=== PATIENT | male | born 1945 | race African-American/Black ===

== ENCOUNTER 2016-12-31 19:02 | Inpatient (IN) | payer MEDICARE, BC ==
--- NOTE | ~2016-12-31 | HP ---
History And Physical [facility] [address] [place]. [address] NAME: MARCIA RAY : 43 STATUS : ADM IN [facility]#: [id number] AGE: 71 ADM/REG DATE : 12/31/16 MR#: [id number] REPORT SERV DATE: 01/01/17 DICTATED BY: DAVID VILLATORO DATE: 01/01/17 REPORT STATUS : Draft TRANSCRIBED BY: MODL DATE: 01/01/17 DATE OF ADMISSION: 12/31/2016 CHIEF COMPLAINT: Shortness of breath. Transfer from [facility]. REASON FOR TRANSFER: The patient was discussed from attending at [facility] with Pulmonary lead simulation modeling engineer for increasing pulmonary pressures and severe pulmonary hypertension. Requested transfer to [facility] under Hospitalist Service for workup for pulmonary hypertension. HISTORY OF PRESENT ILLNESS: The patient is a 71-year-old male with past medical history of COPD; diabetes; hypothyroidism; peptic ulcer disease; irritable bowel syndrome; diastolic heart failure; hypertension; RAMÓN, on trilogy at home; severe pulmonary hypertension with reported recent pulmonary pressures in the 80s, but up to 135 at [facility]; PEA history in 2014; CKD stage 3; hypotestosteronism; and adrenal insufficiency, who presents after having shortness of breath approximately a week ago. Was admitted at [facility]. The patient was treated for COPD exacerbation and diastolic heart failure. Has been on diuresis along with O2, DuoNebs, and steroid taper. The patient with workup did have echocardiogram that showed preserved ejection fraction 55% to 60%, severe RV enlargement, moderate eccentric TR, and severe estimated pulmonary artery systolic pressures of 135 to 140. These results were apparently discussed with on-call for pulmonary, who recommended transfer to [facility] for additional pulmonary workup. The patient has been under the care of Dr. Cher Car and Dr. Pollack. When discussing with the patient, the patient reports that his shortness of breath has slightly been getting better. He does wear his trilogy BiPAP machine at home, but was requiring increased use of this before his admission to [facility]. The patient reports that he has been in progressive shortness of breath and reports that he knows these are the end consequences of this disease, but was trying to get slightly feeling better, which were his goals and going to the hospital. The patient reports that he has no pain at this point. Has been urinating quite a bit including filling up multiple urinals, is actually feeling slightly dehydrated. He does not have any chest pain, shortness of breath, new rashes, bruising, nausea, or vomiting. Does have mild constipation at times. The shortness of breath is significantly improved, but he still requires BiPAP at night. No fevers or chills. REVIEW OF SYSTEMS: A 10-point review of system is negative except that noted in HPI. PAST MEDICAL HISTORY: As noted above. SURGICAL HISTORY: Cholecystectomy and bilateral rotator cuff repairs. ALLERGIES: OXYCODONE, LUIS INHIBITOR, PENICILLIN, ARBS, MORPHINE. CODE STATUS: DNI and the patient also reflects that he is DNR. Discussion with compressions, electrical manipulation including shocks, mechanical History And Physical [address] [address] NAME: MARCIA RAY : 43 STATUS : ADM IN [facility]#: [id number] AGE: 71 ADM/REG DATE : 12/31/16 MR#: [id number] REPORT SERV DATE: 01/01/17 DICTATED BY: DAVID VILLATORO DATE: 01/01/17 REPORT STATUS : Draft TRANSCRIBED BY: CHERIE DATE: 01/01/17 intubation, or ACLS protocol. The patient declines this. Is still okay with BiPAP, CPAP, and also declines having a feeding tube for nutrition if unable to tolerate. This has been reflected on his POLST form during this hospitalization. SOCIAL HISTORY: Quit smoking over 30 years ago. Occasional alcohol. Retired from [employer]. Does have supportive family with sister. Does have one son, who lives alone. FAMILY HISTORY: Heart disease. HOME MEDICATIONS: Albuterol, aspirin, atorvastatin, Symbicort, Bumex, Coreg, vitamin D, Cartia, Trusopt, Cortef, NovoLog insulin, Imdur, Xalatan, Synthroid, was still on Prinivil, meclizine, Nitrostat, Spiriva, Maxzide. PHYSICAL EXAMINATION: VITAL SIGNS: Blood pressure 195/90, O2 saturations 98% on 4 L, temperature 97.3, pulse 83, respirations 16, weight 96.16. GENERAL: Obese, in no acute distress, sitting on side of bed slightly upset secondary to pulmonary team not being at bedside on arrival, as this was what he was told was the reason for transfer. EYES: No scleral icterus. EOMI. ENT: Nares patent. Tongue midline. RESPIRATORY: Good air flow upper lung air cummins. Mildly decreased lower lung air cummins. Increased AP diameter in chest wall, but equal chest expansion. CARDIAC: Mild systolic ejection murmur. No rubs or gallops. Cap refill less than 2 seconds. No JVD. No pedal edema at this time. ABDOMEN: Central obesity. Nontender, nondistended. No CVA tenderness. Bowel sounds positive. MUSCULOSKELETAL: Moves all extremities x4. SKIN: Warm and dry. Actual wrinkling of extremities and mild tenting of hands and feet. NEURO: Alert and oriented. Moves all extremities x4. PSYCH: Appropriate mood, but mildly anxious. LABORATORY DATA: No labs sent from outside facility. Echocardiogram showed moderate eccentric severe pulmonary artery pressures of 135 to 140. Systolic ejection fraction of 55 to 60. Severe RV enlargement and decreased estimated systolic function, flattened septum suggestive of increased RV pressure, volume overload, severe right atrial enlargement, report on chart. ASSESSMENT AND PLAN: 1. Severe pulmonary hypertension with increased pulmonary pressures. Apparently, [facility] attending has discussed with on-call Pulmonary, who recommended transfer to facility for further evaluation and workup. This patient has been treated for approximately a week for acute COPD exacerbation, but still has not returned back to his baseline. We will consult Pulmonary for additional evaluation. 2. Acute chronic obstructive pulmonary disease exacerbation. O2, DuoNebs, and steroid titration. 3. Diabetes type 2. Sliding scale insulin. Increase Levemir while on steroids. History And Physical [address] [place]. [address] NAME: MARCIA RAY : 43 STATUS : ADM IN PAT#: [id number] AGE: 71 ADM/REG DATE : 12/31/16 MR#: [id number] REPORT SERV DATE: 01/01/17 DICTATED BY: DAVID VILLATORO DATE: 01/01/17 REPORT STATUS : Draft TRANSCRIBED BY: MODElieser DATE: 01/01/17 4. Hypertension. P.r.n.'s and home medications with the exception of LUIS inhibitor, which was reported to be contraindicated per our allergy list from 12/17/2014. 5. Hypothyroidism. On replacement. 6. Diastolic heart failure. Appears to be adequately diuresed. This patient does have now tenting of skin, dry skin, and wrinkling of the lower extremities. We will hold continued p.o. Bumex, which was given b.i.d. and reassess in a.m. for further use. DNR, DNI. POLST form completed. The patient has reflected many times of DNI status. I have also discussed additional ACLS including compressions and electrical shocks. The patient declines this and reports that his family knows his wishes. All questions answered with the patient. DISPOSITION: Pending Pulmonary evaluation and results from above. DDN/MODL David Villatoro MD / [id number] CC: Tim Meehan II, MD
--- NOTE | ~2016-12-31 | DS ---
Discharge Summary [place] [id number] [facility] [place]. [address] NAME: MARCIA RAY : 43 STATUS : DIS IN PAT#: [id number] AGE: 72 ADM/REG DATE : 12/31/16 MR#: [id number] REPORT SERV DATE: 01/08/17 DICTATED BY: LIZY JACKSON DATE: 01/08/17 REPORT STATUS : Draft TRANSCRIBED BY: MODL DATE: 01/08/17 ADMISSION DATE: 12/31/2016 DISCHARGE DATE: 01/08/2017 DISCHARGE DIAGNOSES: 1. Acute on chronic hypoxemic and hypercapnic respiratory failure. 2. Severe pulmonary hypertension. 3. Chronic cor pulmonale. 4. Chronic obstructive pulmonary disease with acute exacerbation. 5. Chronic kidney disease 3 exacerbated by additional diuretic therapy. 6. Type 2 diabetes, uncontrolled, with hyperglycemia, and hemoglobin A1c of 9.1. 7. Hypothyroid, on Synthroid replacement, with slightly suppressed TSH at 0.263, outpatient followup needed. 8. Chronic anemia. 9. Glaucoma. 10.Hypogonadism. 11.Chronic diastolic heart failure. OPERATIONS AND PROCEDURES: None. HISTORY OF PRESENT ILLNESS: This is a 72-year-old male, who was transferred from [facility] for further evaluation and treatment of severe pulmonary hypertension as outlined on admission history and physical examination dictated by Dr. Moisés Zapata. ADDITIONAL HISTORY: Per Dr. Zapata. PHYSICAL EXAMINATION: Per Dr. Zapata. ADMISSION LABORATORY: Per Dr. Zapata. HOSPITAL COURSE: He was admitted to [address] [place] [address] with assessment: 1. Severe pulmonary hypertension. 2. Chronic obstructive pulmonary disease exacerbation. 3. Type 2 diabetes. 4. Hypertension. 5. Hypothyroid. 6. Diastolic heart failure. He was seen in consultation by Dr. Juan Jose Guerrero. Dr. Guerrero noted that the patient undergone complete evaluation in 2014, to include a right heart catheterization and a CT angiogram ruling out chronic thromboembolic disease. The patient was found to have severe pulmonary hypertension then. This was thought to be a combined disease with his COPD and obstructive sleep apnea in addition to his significant diastolic heart dysfunction component. Dr. Guerrero suggested putting the patient back on Revatio beginning 20 mg three times daily. Apparently, the patient had taken it intermittently in the past, but there had been some issues with insurance coverage. Discharge Summary [place] [address] [place]. [address] NAME: MARCIA RAY : 43 STATUS : DIS IN PAT#: [id number] AGE: 72 ADM/REG DATE : 12/31/16 MR#: [id number] REPORT SERV DATE: 01/08/17 DICTATED BY: LIZY JACKSON DATE: 01/08/17 REPORT STATUS : Draft TRANSCRIBED BY: MODL DATE: 01/08/17 Dr. Guerrero also suggested a palliative care consultation. The patient's hospital care was assumed by Dr. Meehan through 01/03/2017. Hospital course from admission through 01/03/2017, is as outlined on interim summary dictated by Dr. Meehan. Hospital course 01/04/2017 through 01/08/2017. With the institution of Revatio, there was dramatic improvement in his dyspnea which continued until the time of discharge. There were no complications with the use of this medication. He had been on isosorbide mononitrate when initially seen by the undersigned and this was discontinued. He did not experience any hypotension. He had been placed on additional diuretic therapy prior to my seeing him. He had a bump in his BUN and creatinine, which returned to baseline levels with adjustment in his diuretic doses. Attempts were made to improve his blood sugar control while hospitalized, recognizing that high control should not be pursued given his comorbidities. His hospitalization was prolonged because of a delay in insurance approval for his medication. Medication approval was received late on 01/07/2017. Enough medication for the weekend was obtained through our outpatient pharmacy, and on 01/08/2017, the patient was able to be discharged home. He plans to return to the outpatient pharmacy for his full prescription on Tuesday subsequent to this Tuesday discharge. He will resume home health care he had on admission. He was asked to use a no added salt diet and to restrict his total fluid intake per 24 hours to 1500 mL. He was asked to follow up at [facility] and with Dr. Pollack and Dr. Car. DISCHARGE MEDICATIONS: Aspirin 81 mg daily; Lipitor 40 mg daily; Bumex 0.5 mg twice daily; Maxzide 1/2 tablet daily; Coreg 12.5 mg twice daily; vitamin D 1000 units daily; Cartia XT 120 mg daily; Cortef 20 mg daily for three days, 10 mg daily for three days, then 5 mg daily for three days; insulin Lantus 20 units at bedtime; insulin NovoLog 10 units a.c.; Xalatan eyedrops both eyes at bedtime; Synthroid 75 mcg daily; Revatio 20 mg 3 times daily; Spiriva one cap daily; albuterol nebs three times daily; ProAir HFA two puffs as needed; Symbicort two puffs twice daily 160/4.5; Trusopt one drop twice daily both eyes; Antivert 25 mg as needed for dizziness. He was not to use Prinivil 20 mg daily or Imdur 30 mg daily at this time. During his hospitalization, he was given [place] 5/325 to take four times daily by palliative care which contributed to his respiratory improvement. This will be continued at discharge. Discharge Summary [place] [address] [facility] [place]. [address] NAME: MARCIA RAY : 43 STATUS : DIS IN PAT#: [id number] AGE: 72 ADM/REG DATE : 12/31/16 MR#: [id number] REPORT SERV DATE: 01/08/17 DICTATED BY: LIZY JACKSON DATE: 01/08/17 REPORT STATUS : Draft TRANSCRIBED BY: CHERIE DATE: 01/08/17 He will continue home O2 at 4 L/minute 24 hours per day and his home trilogy. Discharge time greater than 30 minutes. DD/MODL Lizy Jackson M.D. / [id number] CC: Vidhya Rapp M.D. Pamela Sud, M.D.
--- NOTE | ~2016-12-31 | IDS ---
Interim Discharge Summary [facility] [address] [place]. [address] NAME: MARCIA RAY : 43 STATUS : ADM IN PAT#: [id number] AGE: 71 ADM/REG DATE : 12/31/16 MR#: [id number] REPORT SERV DATE: 01/03/17 DICTATED BY: CANDIE CORTEZ II DATE: 01/03/17 REPORT STATUS : Draft TRANSCRIBED BY: MODL DATE: 01/03/17 ADMISSION DATE: 12/31/2016 DISCHARGE DATE: DATE OF INTERIM: 01/03/2017. INTERIM DIAGNOSES: 1. Acute on chronic hypoxic respiratory failure. 2. Severe chronic obstructive pulmonary disease. 3. Severe pulmonary hypertension. 4. Chronic kidney disease stage 3. 5. Chronic diastolic congestive heart failure. 6. Cor pulmonale. 7. Diabetes mellitus type 2. 8. Hypertension. 9. History of hypothyroidism. CONSULTS: Dr. Juan Jose Guerrero with Pulmonary and Dr. Garcia with Palliative Care. BRIEF HISTORY OF PRESENT ILLNESS: The patient is a 71-year-old male with the above history, who presented to [facility] from [facility] due to dyspnea and elevated pulmonary pressure. For detailed history and physical examination, please see Dr. Zapata's note from 12/31/2016. HOSPITAL COURSE: Upon admission, the patient was noted to be saturating well on 4 L, which is his home oxygen dose. He was not tachypneic. His lungs were diminished, but did not appear in any exacerbated state. He was transferred from [facility] as he was found to have pulmonary artery systolic pressure of 135 to 140, but apparently it was unknown that he already had a previous workup, but he was sent over here for that reason. Dr. Guerrero saw the patient and noted his prior right heart catheterization and group 3 severe pulmonary hypertension. He has been on and off Revatio in the past and currently not on it. Dr. Guerrero restarted Revatio, but otherwise his home medications have been continued. I increased his oral Bumex to two twice a day, though it appears his creatinine is slowly trending up, so we will hold today's dose and decreased back down to one. He still has some 1+ bilateral lower extremity edema, which may never go away given his elevated pressures. He is followed usually as an outpatient by Dr. Car, who saw him today and is adding Opsumit. Currently case management is working on getting him approval for both of those. Once they are approved, the patient will be discharged home. Hopefully, we will see a trend down in his creatinine prior to discharge as well. Otherwise, his chronic medical problems are stable and he is continued on his home medications. Dr. Jackson will take over the patient's care starting tomorrow. PRECIOUS/CHERIE Candie Gao Interim Discharge Summary [address] [address] NAME: MARCIA RAY : 43 STATUS : ADM IN [facility]#: [id number] AGE: 71 ADM/REG DATE : 12/31/16 MR#: [id number] REPORT SERV DATE: 01/03/17 DICTATED BY: CANDIE CORTEZ II DATE: 01/03/17 REPORT STATUS : Draft TRANSCRIBED BY: CHERIE DATE: 01/03/17 Zoran DILLON MD / [id number] CC: Candie Cortez II, MD
--- NOTE | ~2016-12-31 | CN ---
Consultation Report [facility] [address] [place]. [address] NAME: MARCIA PHAN : 43 STATUS : ADM IN PAT#: [id number] AGE: 71 ADM/REG DATE : 12/31/16 MR#: [id number] REPORT SERV DATE: 01/01/17 DICTATED BY: ERNESTINA GUERRERO IV DATE: 01/01/17 REPORT STATUS : Draft TRANSCRIBED BY: MODElieser DATE: 01/01/17 PULMONARY CONSULTATION. DATE OF CONSULTATION: 01/01/2017 REASON FOR REQUEST: Pulmonary hypertension. HISTORY OF PRESENT ILLNESS: History was obtained from the records and from the patient. Mr. Phan is a 71-year-old male with a history of severe pulmonary hypertension, COPD, obstructive sleep apnea, hypothyroidism, hypertension, chronic kidney disease, adrenal insufficiency, who was admitted and transferred from [place] on 12/31/2016 with increased shortness of breath with echocardiogram evidenced for markedly elevated pulmonary pressures. The patient was initially found to have elevated pulmonary pressures when he presented with a PEA arrest in November 2014. He had a CT angiogram of the chest failing to demonstrate any pulmonary embolism. He underwent right and left heart catheterizations, which demonstrated a mean pulmonary artery pressure of 57 with a wedge of only 13. The patient was initiated on Revatio discussion of adding and ERA agent in the future. It does not appear that this was performed. The patient had been on Revatio by report on an off as the patient is unable to provide a history as to when it was finally discontinued. He has had intermittent echocardiogram demonstrating right ventricular dysfunction with elevated right-sided pressures. He has had several hospitalizations here and at [place] for increased shortness of breath with any exertion. He underwent a repeat echocardiogram at [place] with reported pulmonary pressures in the 140 range for which he is transferred here. The patient reports he has been compliant with his bronchodilator medications. He had a respiratory infection about a month ago, though feels he is back to his baseline. His exercise tolerance is limited to less than 20 feet, at which time, he becomes short of breath. He is on supplemental oxygen /. He carries a diagnosis of obstructive sleep apnea for which he is on a home trilogy unit, which he uses at nighttime for chronic hypercapnic respiratory failure. The patient denies significant sputum production. He uses his nebulizer several times a day and is compliant with his Spiriva and Symbicort. The patient carries a diagnosis of obstructive sleep apnea of unclear severity. He uses the trilogy unit at nighttime as above. I have no recent compliance data. PULMONARY HISTORY: Remarkable for no history of childhood asthma. He carries a diagnosis of adult COPD, however, I cannot find any pulmonary function studies. He has had pneumonia in the past. He is a greater than 24-lass-njgx smoker, who quit while the patient was in his 60s. He is reportedly up-to-date on his immunizations. There are no occupational exposures to chemicals or solvents. He is up to date on after he previously worked for the [employer] service. PAST MEDICAL HISTORY: Remarkable for, 1. Severe pulmonary hypertension. Consultation Report [address] [place]. [address] NAME: MARCIA PAHN : 43 STATUS : ADM IN [facility]#: [id number] AGE: 71 ADM/REG DATE : 12/31/16 MR#: [id number] REPORT SERV DATE: 01/01/17 DICTATED BY: ERNESTINA GUERRERO IV DATE: 01/01/17 REPORT STATUS : Draft TRANSCRIBED BY: CHERIE DATE: 01/01/17 2. COPD. 3. Obstructive sleep apnea. 4. Hypothyroidism. 5. Chronic respiratory failure. 6. Hypertension. 7. Chronic kidney disease. 8. Adrenal insufficiency, on chronic steroids. SURGERIES: The patient had gallbladder and bilateral rotator cuff repair. ALLERGIES: LISTED ARE LUIS INHIBITORS, PENICILLIN, ARBS, MORPHINE, AND OXYCODONE. CURRENT MEDICATIONS: Aspirin 81 mg daily, Bumex 1 mg daily, Cardizem CD 120 mg daily, Coreg 12.5 mg twice a day, prednisone 40 mg daily, Dulera 2 puffs twice a day, Imdur 30 mg daily, Levemir 20 units twice a day, Lipitor 40 mg daily, Lovenox 40 mg daily, level-3 insulin sliding scale, Proventil 2 puffs daily, Proventil nebulizer q.8 hours, Spiriva one capsule daily, Synthroid 75 mcg daily, Xalatan and Trusopt eyedrops, and vitamin D. SOCIAL HISTORY: Remarkable for the tobacco use as above. There is no alcohol or illicit drug use. He is , he has a one child. FAMILY HISTORY: Remarkable for mother with coronary artery disease, hypertension, and diabetes mellitus. REVIEW OF SYSTEMS: 14 systems reviewed and pertinent positives noted above. PHYSICAL EXAMINATION: GENERAL: This is an obese, pleasant, elderly male, in no distress. He is on supplemental oxygen. VITAL SIGNS: Temperature is 97.6, respiratory rate is 20, saturations are 95% on 3 L via nasal cannula, blood pressure 184/78, and pulse is 76. HEENT: The patient is normocephalic and atraumatic. He has slightly muddy sclerae. Pupils do react to light. He has a nasal cannula in place. He has relatively poor dentition with missing teeth and gingival disease. He has a Mallampati 3 airway with narrowing of the posterior pharyngeal space. NECK: Without any palpable lymphadenopathy or thyromegaly. CHEST: The patient has decreased breath sounds symmetrically and prolonged expiratory phase. There are some minimal dry bibasilar inspiratory crackles. No wheezes or rhonchi noted. CARDIOVASCULAR: Jugular venous pulsations are difficult to elicit. He has 1+ carotid upstrokes. No obvious bruit. He has a distant regular S1 and S2 with a 2/6 systolic murmur at the left sternal border. No clear S3 is noted. Peripheral pulses are diminished. ABDOMEN: Protuberant, soft. There are hypoactive bowel sounds. There is no palpable hepatosplenomegaly or mass. Consultation Report [address] [place]. [address] NAME: MARCIA PHAN : 43 STATUS : ADM IN [facility]#: [id number] AGE: 71 ADM/REG DATE : 12/31/16 MR#: [id number] REPORT SERV DATE: 01/01/17 DICTATED BY: ERNESTINA GUERRERO IV DATE: 01/01/17 REPORT STATUS : Draft TRANSCRIBED BY: CHERIE DATE: 01/01/17 EXTREMITIES: Demonstrate no cyanosis, clubbing, edema, or palpable cords. NEUROLOGIC: Strength is 5/5 and sensation intact to light touch. IMAGING: Chest x-ray demonstrates no acute pulmonary disease. LABORATORY DATA: Hemoglobin is 10.2, hematocrit 32, platelet count was 231,000, white blood cell count was 10.8. Chemistry: Sodium is 148, potassium 4.2, chloride 104, bicarb 39, BUN 32, creatinine 1.23, glucose of 177. Recent thyroid functions were unremarkable. ASSESSMENT AND PLAN: 1. Respiratory. The patient had undergone complete evaluation in 2014 to include a right heart catheterization and a CT angiogram ruling out chronic thromboembolic disease. The patient was found to have severe pulmonary hypertension then. This is a combined disease with his COPD and his obstructive sleep apnea, however, he does not appear on that wedge to have a significant diastolic heart dysfunction component. I would suggest putting the patient back on Revatio at least. We will start lower dose 20 mg three times a day and potentially push the dose to 40 mg three times a day as he tolerates it and does not develop worsening hypoxemia. He would be a consideration for an ERA agent if he otherwise tolerates the medications. Hydralazine will be added as needed for elevated blood pressure. We would continue medications for his COPD. I can find no pulmonary function studies in the system to quantify the severity of his disease, though he is hypercapnic, likely multifactorial. We will ask him to bring in his own trilogy unit to use at nighttime, which would be better than our BiPAP. We would rapidly taper his prednisone on his current exam. Oxygen will be titrated to maintain saturation in the 90% to 94% range. 2. Endocrinologic. Insulin coverage will be continued. We would continue the Synthroid. 3. Renal. We will watch the patient's bicarbonate and give Diamox if it rises further. 4. Social. The patient is DNR. We will ask call Palliative Care to evaluate the patient on Tuesday. Thank you for consulting us. We will follow the patient with you. NM/MODL Ernestina Guerrero IV, M.D. / [id number] CC: Tim Meehan II, MD
[~2016-12-31 19:02] MED LIST: ALBUTEROL0.083 % INH; ALBUTEROL5 INH; ASAB PO; BROVANA15 MCG INH; BUM1 PO; CARDCD120 PO; COREG12 PO; COREG25 PO; CORTEF20 MG; CORTEF20 MG PO; CORTEF5; CRESTOR20 MG PO; DORZOLAMIDE2 % OPH; DRAMAMINE25 MG PO; DRY EYES OP; GLUCOPHAGE1000 MG PO; HALF81 PO; HUMALOG SC; IMDUR30 PO; KDUR20 PO; KLOR-CON M2020 MEQ PO; L20 PO; LANTUS SC; LEVOTHYROXIN75 MCG PO; LIPITOR40 PO; LIPITOR80 MG PO; LISINOPRIL40 MG PO; MAX25 PO; MCZ25 PO; NITROSTAT0.4 MG SL; NOVOLOG SC; P20 PO; PRAVAC PO; PRIN20 PO; PROAIR HFA INH; PROVENTSOL INH; PULRESP.5 INH; REVATIO20 PO; SPIRIVA INH; SYMBICORT 160/41 INH INH; SYN075 PO; T PO; TAZTIA X3 PO; TIAZAC PO; TRUSOPT2 % OPH; VIAGRA25 PO; VIBRATAB100 MG PO; VICODINTAB PO; VITAMIN D31000 UNIT PO; XALAT OPH
[2016-12-31] MEDS ORDERED: PRIN20 PO (22:39)
[2016-12-31] MEDS ORDERED: LIPITOR40 PO (22:39)
[2016-12-31] MEDS ORDERED: CARTIA XT120 MG/24 PO (22:40)
[2016-12-31] MEDS ORDERED: IMDUR30 PO (22:40)
[2016-12-31] MEDS ORDERED: MAX25 PO (22:40)
[2016-12-31] MEDS ORDERED: LANTUS SC (22:41)
[2016-12-31] MEDS ORDERED: BUM5 PO (22:41)
[2016-12-31] MEDS ORDERED: COREG12 PO (22:42)
[2016-12-31] MEDS ORDERED: NOVOLOG SC (22:42)
[2016-12-31] MEDS ORDERED: SPIRIVA INH (22:48)
[2016-12-31] MEDS ORDERED: CORTEF5 PO (22:48)
[2016-12-31] MEDS ORDERED: XALAT OPH (22:48)
[2016-12-31] MEDS ORDERED: SYN075 PO (22:49)
[2016-12-31] MEDS ORDERED: TRUSOPT2 % OPH (22:51)
[2016-12-31] MEDS ORDERED: SYMBICORT 160/41 INH INH (22:51)
[2016-12-31] MEDS ORDERED: VITAMIN D1000 UNI1 PO (22:52)
[2016-12-31] MEDS ORDERED: PROAIR HFA INH (22:53)
[2016-12-31] MEDS ORDERED: ALBUTEROL0.083 % INH (22:53)
[2016-12-31] MEDS ORDERED: ASAB PO (22:53)
[2016-12-31] MEDS ORDERED: MCZ25 PO (22:54)
[2016-12-31] MEDS ORDERED: NITROSTAT0.4 MG SL (22:54)
[2017-01-01 07:48] LABS: BASOPHILS 0.1 %; BASOPHILS ABSOLUTE 0.01 10/3/uL (0.0-0.16); EOSINOPHILS 0.3 %; EOSINOPHILS ABSOLUTE 0.03 10/3/uL (0.0-0.53); HEMOGLOBIN 10.2 g/dL (13.6-17.8); IMMATURE GRANULOCYTES 2.3 %; IMMATURE GRANULOCYTES ABSOLUTE 0.25 10/3/uL (0.0-0.11); LYMPHOCYTES 16.7 %; MEAN CORPUS HGB CONC 31.9 g/dL (32.0-36.0); MEAN CORPUSCULAR HEMOGLOB 31.8 pg (26.0-34.0); MEAN CORPUSCULAR VOLUME 99.7 fL (80-100); MEAN PLATELET VOLUME 10.3 fL (9.2-13.0); MONOCYTES ABSOLUTE 1.51 10/3/uL (0.21-1.20); NEUTROPHILS 66.6 %; NEUTROPHILS ABSOLUTE 7.18 10/3/uL (2.02-8.40); PLATELET COUNT 231 10/3/uL (150-400); RBC DISTRIBUTION WIDTH 13.9 % (12.0-16.0); RED CELL COUNT 3.21 10/6/uL (4.7-6.1); WHITE BLOOD CELLS 10.8 10/3/uL (4.5-10.5)
[2017-01-01 07:49] LABS: MANUAL DIFF NO %
[2017-01-01 08:01] LABS: A/G RATIO 0.9 (0.7-1.9); ALBUMIN 2.8 G/DL (3.5-5.0); ALKALINE PHOSPHATASE 72 U/L (45-117); BUN (BLOOD UREA NITROGEN) 32 MG/DL (6-23); CALCIUM, SERUM 8.8 MG/DL (8.5-10.4); CHLORIDE, SERUM 104 MMOL/L (96-112); CO2 (CARBON DIOXIDE) 39 MMOL/L (24-34); CREATININE 1.23 MG/DL (0.70-1.30); GFR AFRICAN AMERICAN 68 ML/MIN (>=60); GFR NON AFRICAN AMERICAN 58 ML/MIN (>=60); GLOBULIN 3.2 G/DL (2.5-4.1); GLUCOSE, SERUM 177 MG/DL (60-99); POTASSIUM, SERUM 4.2 MMOL/L (3.5-5.3); SGOT(AST) 17 U/L (5-40); SGPT(ALT) 46 U/L (5-65); SODIUM, SERUM 148 MMOL/L (135-148); TOTAL BILIRUBIN 0.2 MG/DL (0-1.2)
[2017-01-02 05:39] LABS: BUN (BLOOD UREA NITROGEN) 34 MG/DL (6-23); CALCIUM, SERUM 9.3 MG/DL (8.5-10.4); CHLORIDE, SERUM 100 MMOL/L (96-112); CO2 (CARBON DIOXIDE) 40 MMOL/L (24-34); CREATININE 1.44 MG/DL (0.70-1.30); GFR AFRICAN AMERICAN 56 ML/MIN (>=60); GFR NON AFRICAN AMERICAN 48 ML/MIN (>=60); GLUCOSE, SERUM 215 MG/DL (60-99); POTASSIUM, SERUM 4.6 MMOL/L (3.5-5.3); SODIUM, SERUM 146 MMOL/L (135-148)
[2017-01-03 04:52] LABS: CALCIUM, SERUM 8.9 MG/DL (8.5-10.4); CHLORIDE, SERUM 97 MMOL/L (96-112); CO2 (CARBON DIOXIDE) 38 MMOL/L (24-34); CREATININE 1.56 MG/DL (0.70-1.30); GFR AFRICAN AMERICAN 51 ML/MIN (>=60); GFR NON AFRICAN AMERICAN 44 ML/MIN (>=60); SODIUM, SERUM 143 MMOL/L (135-148)
[2017-01-03 04:54] LABS: BUN (BLOOD UREA NITROGEN) 42 MG/DL (6-23); GLUCOSE, SERUM 292 MG/DL (60-99)
[2017-01-04 04:06] LABS: CALCIUM, SERUM 8.9 MG/DL (8.5-10.4); CHLORIDE, SERUM 94 MMOL/L (96-112); CO2 (CARBON DIOXIDE) 36 MMOL/L (24-34); CREATININE 1.67 MG/DL (0.70-1.30); GFR AFRICAN AMERICAN 47 ML/MIN (>=60); GFR NON AFRICAN AMERICAN 40 ML/MIN (>=60); GLUCOSE, SERUM 337 MG/DL (60-99); POTASSIUM, SERUM 3.9 MMOL/L (3.5-5.3); SODIUM, SERUM 139 MMOL/L (135-148)
[2017-01-04 04:07] LABS: BUN (BLOOD UREA NITROGEN) 48 MG/DL (6-23)
[2017-01-04 09:44] LABS: ULTRASENSITIVE TSH 0.263 MCIU/ML (0.358-3.740)
[2017-01-05 07:04] LABS: HEMATOCRIT 33.5 % (40.0-51.0); HEMOGLOBIN 10.6 g/dL (13.6-17.8); MEAN CORPUS HGB CONC 31.6 g/dL (32.0-36.0); MEAN CORPUSCULAR HEMOGLOB 31.6 pg (26.0-34.0); MEAN PLATELET VOLUME 10.4 fL (9.2-13.0); PLATELET COUNT 223 10/3/uL (150-400); RBC DISTRIBUTION WIDTH 14.1 % (12.0-16.0); RED CELL COUNT 3.35 10/6/uL (4.7-6.1); WHITE BLOOD CELLS 10.9 10/3/uL (4.5-10.5)
[2017-01-05 07:05] LABS: MANUAL DIFF YES %
[2017-01-05 07:17] LABS: CALCIUM, SERUM 8.9 MG/DL (8.5-10.4); CHLORIDE, SERUM 96 MMOL/L (96-112); CO2 (CARBON DIOXIDE) 33 MMOL/L (24-34); CREATININE 1.59 MG/DL (0.70-1.30); GFR AFRICAN AMERICAN 50 ML/MIN (>=60); GFR NON AFRICAN AMERICAN 43 ML/MIN (>=60); GLUCOSE, SERUM 313 MG/DL (60-99); SODIUM, SERUM 138 MMOL/L (135-148)
[2017-01-05 07:18] LABS: BUN (BLOOD UREA NITROGEN) 54 MG/DL (6-23)
[2017-01-05 07:40] LABS: BAND NEUTROPHILS 2 %; IMMATURE GRANS ABSOLUTE (CALC) 0.33 10/3/uL (0.0-0.11); LYMPHOCYTES 17 %; LYMPHOCYTES ABSOLUTE (CALC) 1.85 10/3/uL (0.67-4.30); METAMYELOCYTES 2 %; MONOCYTES 8 %; MONOCYTES ABSOLUTE (CALC) 0.87 10/3/uL (0.21-1.20); MYELOCYTES 1 %; NEUTROPHILS ABSOLUTE (CALC) 7.85 10/3/uL (2.02-8.40); NUCLEATED RED BLOOD CELLS 1 /100WBC (0); PLATELET ESTIMATE ADQ (ADEQUATE); SEGMENTED NEUTROPHIL (0) 70 %; TOTAL NUCLEATED CELLS 100
[2017-01-05 07:41] LABS: MACROCYTES 1+ (5-10/OIF) (0-5/OIF)
[2017-01-06 06:38] LABS: CALCIUM, SERUM 8.7 MG/DL (8.5-10.4); CHLORIDE, SERUM 101 MMOL/L (96-112); CO2 (CARBON DIOXIDE) 30 MMOL/L (24-34); CREATININE 1.45 MG/DL (0.70-1.30); GFR AFRICAN AMERICAN 55 ML/MIN (>=60); GFR NON AFRICAN AMERICAN 47 ML/MIN (>=60); SODIUM, SERUM 142 MMOL/L (135-148)
[2017-01-06 06:42] LABS: BUN (BLOOD UREA NITROGEN) 48 MG/DL (6-23); GLUCOSE, SERUM 214 MG/DL (60-99); POTASSIUM, SERUM 4.2 MMOL/L (3.5-5.3)
[2017-01-07 08:32] LABS: CALCIUM, SERUM 8.7 MG/DL (8.5-10.4); CHLORIDE, SERUM 103 MMOL/L (96-112); CREATININE 1.37 MG/DL (0.70-1.30); GFR AFRICAN AMERICAN 59 ML/MIN (>=60); GFR NON AFRICAN AMERICAN 51 ML/MIN (>=60); GLUCOSE, SERUM 186 MG/DL (60-99); POTASSIUM, SERUM 4.1 MMOL/L (3.5-5.3); SODIUM, SERUM 144 MMOL/L (135-148)
[2017-01-07 08:35] LABS: BUN (BLOOD UREA NITROGEN) 40 MG/DL (6-23); CO2 (CARBON DIOXIDE) 37 MMOL/L (24-34)
[2017-01-08] MEDS ORDERED: REVATIO20 PO (11:10)
[2017-01-08] MEDS ORDERED: SENTAB PO (11:11)
[2017-01-08] MEDS ORDERED: NORCO1 TA1 PO (11:12)
== END 2017-01-08 14:04 | disposition home health service (06) | DRG 314 ==
LOC: 6NO 19:02
PROVIDERS: Internal Medicine; Student in an Organized Health Care Education/Training Program
DX: I27.2 Other secondary pulmonary hypertension (principal); J96.21 Acute and chronic respiratory failure with hypoxia; I50.32 Chronic diastolic (congestive) heart failure; I13.0 Hypertensive heart and chronic kidney disease with heart failure and stage 1 through stage 4 chronic kidney disease, or unspecified chronic kidney disease; J96.22 Acute and chronic respiratory failure with hypercapnia; E27.40 Unspecified adrenocortical insufficiency; J44.1 Chronic obstructive pulmonary disease with (acute) exacerbation; Z51.5 Encounter for palliative care; E03.9 Hypothyroidism, unspecified; N18.3 Chronic kidney disease, stage 3 (moderate); E11.22 Type 2 diabetes mellitus with diabetic chronic kidney disease; E11.65 Type 2 diabetes mellitus with hyperglycemia; H40.9 Unspecified glaucoma; E29.1 Testicular hypofunction; G47.33 Obstructive sleep apnea (adult) (pediatric); Z66 Do not resuscitate; Z87.11 Personal history of peptic ulcer disease; E86.0 Dehydration; K59.00 Constipation, unspecified; Z88.5 Allergy status to narcotic agent; Z88.0 Allergy status to penicillin; Z79.82 Long term (current) use of aspirin; Z79.4 Long term (current) use of insulin
CPT/HCPCS: 71010; 80048; 80053; 82962; 83036; 83735; 83880; 84443; 85025; 94640; 94660; A9270-GY

== ENCOUNTER 2017-01-19 16:07 | Inpatient (IN) | payer MEDICARE, BC ==
--- NOTE | ~2017-01-19 | DS ---
Discharge Summary [facility] [address] [place]. [address] NAME: MARCIA RAY : 43 STATUS : DIS IN PAT#: [id number] AGE: 72 ADM/REG DATE : 01/19/17 MR#: [id number] REPORT SERV DATE: 01/23/17 DICTATED BY: GABE MORALES DATE: 01/22/17 REPORT STATUS : Draft TRANSCRIBED BY: MODElieser DATE: 01/22/17 ADMISSION DATE: 01/19/2017 DISCHARGE DATE: 01/22/2017 PROCEDURES DONE: 1. 01/19/ chest x-ray: No acute cardiopulmonary abnormality. 2. 01/20/2017 chest x-ray: Chronic vascular congestion. No infiltrate or effusion. CONSULT: Dr. Dumont for Pulmonary. REASON FOR ADMISSION: Shortness of breath x3 days. HISTORY OF PRESENT ILLNESS: This 72-year-old black male with past medical history of chronic hypercapnic respiratory failure; severe pulmonary hypertension, on BiPAP; chronic cor pulmonale; COPD; chronic kidney disease, stage 3; diabetes type 2; hypothyroid; hyperlipidemia; chronic diastolic heart failure, unknown EF presenting with shortness of breath x3 days. The patient was admitted for further evaluation of his shortness of breath. The patient exhibited acute exacerbation of COPD versus acute on chronic hypercapnic respiratory failure. The patient was started on his BiPAP, which greatly improved the patient's hypercapnia. In addition, the patient's acute exacerbation was also improved with steroids as well as antibiotics. On further questioning, the patient could not recall as far as trigger factors for the patient's shortness of breath. There was a question of secondhand smoke. In addition, the nephew came up to me regarding safety concerns with the patient. Apparently, the patient does live by himself, questionable if the patient is following medical instructions and takes his medication as appropriate. Therefore, a consult has been placed to disease case manager for home health with med check and safety. DISPOSITION: The patient feels fine, no complaint. ACTIVITIES: As tolerated. DIET: Cardiac. INSTRUCTIONS UPON DISCHARGE: 1. The patient to follow up with primary care physician within one to two weeks' time. 2. The patient to follow up with Pulmonary within one to two weeks' time. MEDICATION UPON DISCHARGE: 1. Aspirin 81 mg daily. 2. Lipitor 40 mg p.o. daily. 3. Bumex 0.5 mg p.o. b.i.d. 4. Coreg 12.5 mg p.o. b.i.d. 5. Vitamin D 1000 units p.o. daily. 6. Cartia XT 120 mg p.o. daily. 7. Lantus 20 units subcutaneous daily. 8. NovoLog 10 units prior to each meal. Discharge Summary [place] [address] [place]. [address] NAME: MARCIA RAY : 43 STATUS : DIS IN PAT#: [id number] AGE: 72 ADM/REG DATE : 01/19/17 MR#: [id number] REPORT SERV DATE: 01/23/17 DICTATED BY: GABE MORALES DATE: 01/22/17 REPORT STATUS : Draft TRANSCRIBED BY: CHERIE DATE: 01/22/17 9. Xalatan 1 drop at bedtime both eyes. 10.Synthroid 75 mcg p.o. daily. 11.Spiriva one tablet inhaled daily. 12.Maxzide 37.5/25 half tab p.o. daily. 13.Symbicort 160/4.5 two puffs b.i.d. 14.Trusopt 1 drop both eyes b.i.d. 15.Albuterol nebulizers three times a day. 16.ProAir two puffs b.i.d. p.r.n. 17.Antivert 25 mg p.o. daily p.r.n. 18.Parrott 5/325 one tablet four times a day p.r.n. DIAGNOSIS UPON DISCHARGE: 1. Shortness of breath secondary to acute exacerbation of chronic obstructive pulmonary disease versus acute on chronic hypercapnic respiratory failure. 2. Acute exacerbation of chronic obstructive pulmonary disease. 3. Acute on chronic hypercapnic respiratory failure. 4. Severe pulmonary hypertension. 5. History of congestive heart failure diastolic dysfunction, unknown ejection fraction. 6. Chronic kidney disease, stage 3. RAN/CHERIE Gabe Morales MD / [id number] CC: Gabe Morales MD
--- NOTE | ~2017-01-19 | CN ---
Consultation Report [place] [address] [facility] [place]. [address] NAME: WILLIE PHAN : 43 STATUS : ADM IN [facility]#: [id number] AGE: 72 ADM/REG DATE : 01/19/17 MR#: [id number] REPORT SERV DATE: 01/22/17 DICTATED BY: KERRY GUZMAN DATE: 01/21/17 REPORT STATUS : Draft TRANSCRIBED BY: MODL DATE: 01/21/17 CONSULTATION DATE OF CONSULTATION: Dear Dr. Jain: Thank you for requesting my opinion regarding evaluation and management of Mr. Willie Phan' shortness of breath and acute exacerbation of COPD. Mr. Phan is a 72-year-old gentleman with a complex past medical history including chronic hypoxic hypercapnic respiratory failure, severe pulmonary hypertension, cor pulmonale, COPD, chronic kidney disease, type 2 diabetes, hypothyroidism, hyperlipidemia, chronic diastolic dysfunction, who presents with shortness of breath for the past 3 days. He was in his usual state of health until 01/08/2017. He developed a worsening shortness of breath with a productive cough with yellow sputum. He denies any fevers, chills, night sweats, nausea, vomiting, or diarrhea. He has associated symptoms of chest tightness and shortness of breath. He has been treated with antibiotics, steroids, bronchodilators, and oxygen therapy with significant improvement and states that he is anxious to go home tomorrow. PAST MEDICAL HISTORY: 1. COPD. 2. Chronic hypoxic hypercapnic respiratory failure. 3. Severe pulmonary hypertension, cor pulmonale. 4. COPD. 5. Chronic kidney disease. 6. Type 2 diabetes. 7. Hypothyroidism. 8. Hyperlipidemia. 9. Chronic diastolic dysfunction. PAST SURGICAL HISTORY: As above. ALLERGIES: PENICILLIN, ARBS, MORPHINE, AND OXYCODONE. HOME MEDICATIONS: Reviewed and located in the paper chart. SOCIAL HISTORY: The patient is a prior smoker, currently does not smoke. He denies any significant alcohol or illicit drug abuse. FAMILY HISTORY: Heart disease. PHYSICAL EXAMINATION: VITAL SIGNS: Afebrile, T-current of 98.36, pulse 68, respiratory rate of 16, 99%, MAP of 93, and blood pressure 93/54. GENERAL: No acute distress. Able to communicate in full paragraphs at a time. Consultation Report [facility] [address] [place]. [address] NAME: WILLIE PHAN : 43 STATUS : ADM IN [facility]#: [id number] AGE: 72 ADM/REG DATE : 01/19/17 MR#: [id number] REPORT SERV DATE: 01/22/17 DICTATED BY: KERRY GUZMAN DATE: 01/21/17 REPORT STATUS : Draft TRANSCRIBED BY: MODElieser DATE: 01/21/17 HEENT: Normocephalic, atraumatic. Pupils are equal, round, and reactive to light and accommodation. Posterior oropharynx is clear. NECK: No JVD. No LAD. Trachea midline. CARDIOVASCULAR: Regular rate and rhythm. S1, S2 present. Diminished breath sounds bilaterally. ABDOMEN: Nontender and nondistended. Soft. Positive bowel sounds. EXTREMITIES: No clubbing, cyanosis, or edema. SKIN: Skin color changes noted on his face. NEUROLOGIC: 5/5 strength in upper and lower extremities. Cranial nerves II through XII intact. Gait not tested. DTRs not performed. LABORATORY DATA: White count of 8, hemoglobin of 10, platelet count of 293. Chemistries demonstrate a creatinine of 1.57, pH is 7.3, PaCO2 of 78, and PaO2 of 190 on 01/19/2017. IMAGING/STUDIES: Chest x-ray on 01/20/2017 demonstrates chronic passive congestion. No infiltrate or effusion. ASSESSMENT AND PLAN: Mr. Phan is a pleasant but unfortunate 72-year-old gentleman with a significant past medical history of end-stage chronic obstructive pulmonary disease, cor pulmonale, prior history of tobacco abuse, and history of diastolic dysfunction, who presents to [facility] with worsening shortness of breath due to the followin. Acute exacerbation of chronic obstructive pulmonary disease. 2. Severe pulmonary hypertension, likely secondary to cor pulmonale. 3. Congestive heart failure with diastolic dysfunction. 4. Chronic kidney disease. A summary of my additions are as follows: 1. Continue doxycycline. 2. Continue Spiriva and Dulera. 3. Continue cautious diuresis with Bumex. 4. The patient's symptoms have significantly improved after doses of diuretics. 5. The patient states that he is now currently at his baseline dyspnea. The patient may or may not need steroids at this point, and his symptoms may be more attributed to volume overload rather than COPD exacerbation. Thank you for allowing me to participate in Mr. Phan' care. Please reconsult with questions or concerns, especially if the patient decompensates, but he appears to be improving rapidly and is anxious to go home tomorrow. IGNACIO/CHERIE Kerry Guzman M.D. Consultation Report [address] [place]. [address] NAME: WILLIE PHAN : 43 STATUS : ADM IN PAT#: [id number] AGE: 72 ADM/REG DATE : 01/19/17 MR#: [id number] REPORT SERV DATE: 01/22/17 DICTATED BY: KERRY GUZMAN DATE: 01/21/17 REPORT STATUS : Draft TRANSCRIBED BY: CHERIE DATE: 01/21/17 / [id number] CC: Gabe Jain MD
--- NOTE | ~2017-01-19 | HP ---
History And Physical [place] [address] [facility] [place]. [address] NAME: MARCIA RAY : 43 STATUS : ADM IN [facility]#: [id number] AGE: 72 ADM/REG DATE : 01/19/17 MR#: [id number] REPORT SERV DATE: 01/20/17 DICTATED BY: GABE MORALES DATE: 01/19/17 REPORT STATUS : Draft TRANSCRIBED BY: MODElieser DATE: 01/19/17 DATE OF ADMISSION: 01/19/2017 CHIEF COMPLAINT: Shortness of breath x3 days. HISTORY OF PRESENT ILLNESS: A 72-year-old black male with past medical history of chronic hypercapnic respiratory failure, severe pulmonary hypertension, chronic cor pulmonale, COPD, chronic kidney disease stage 3, diabetes type 2, hypothyroid, hyperlipidemia, chronic diastolic heart failure, presenting with shortness of breath x3 days. The patient states that he was in usual state of health after being discharged on 01/08/2017. The patient states that he followed his medications as directed. He denies any smoking. However, the patient has been exposed to secondhand smoke by his son. The patient also stated that he started having cough with yellow productive sputum. He denies any sick contacts, and he denies any pleuritic chest pain. In addition, the patient states when he uses bronchodilators, his shortness of breath improves. He did mention his last hospitalization was back on 01/08/2017. The patient also admits to not wanting any intubation, but he does want chest compressions. PAST MEDICAL HISTORY: As above. MEDICATIONS: 1. ProAir two puffs b.i.d. 2. Albuterol nebulizers three times a day. 3. Aspirin 81 mg p.o. daily. 4. Lipitor 40 mg p.o. daily. 5. Symbicort 160/4.5 two puffs b.i.d. 6. Bumex 0.5 mg p.o. b.i.d. 7. Coreg 12.5 mg p.o. b.i.d. 8. Vitamin D 1000 units p.o. daily. 9. Cartia XT 120 mg p.o. daily. 10.Trusopt 2% ophthalmic solution, one drop both eyes. 11.Gilman 5/325 one tablet four times a day p.r.n. 12.NovoLog 10 units subcutaneously before meals. 13.Lantus 20 units subcutaneously q.h.s. 14.Xalatan one drop ophthalmic both eyes. 15.Synthroid 75 mcg p.o. daily. 16.Antivert 25 mg p.o. daily p.r.n. 17.Spiriva one tablet inhaled daily. 18.Maxzide 37.5/25 half tablet p.o. daily. ALLERGIES: TO LUIS, PENICILLIN, ARBS, MORPHINE, OXYCODONE. SOCIAL HISTORY: Nonsmoker, nondrinker. FAMILY HISTORY: Significant for heart disease. History And Physical [address] [place]. [address] NAME: MARCIA RAY : 43 STATUS : ADM IN [facility]#: [id number] AGE: 72 ADM/REG DATE : 01/19/17 MR#: [id number] REPORT SERV DATE: 01/20/17 DICTATED BY: GABE MORALES DATE: 01/19/17 REPORT STATUS : Draft TRANSCRIBED BY: CHERIE DATE: 01/19/17 REVIEW OF SYSTEMS: Ten-point review of systems conducted, which were negative, except for above complaints. PHYSICAL EXAMINATION: VITAL SIGNS: Temperature of 98.6, pulse of 70, respiratory rate 22, BP 128/59, and O2 saturation 97% on 4 L. HEAD AND NECK: Normocephalic, atraumatic. CARDIOVASCULAR: S1 and S2. Regular rate and rhythm. Tachycardic. LUNGS: Decreased air entry in the lungs. Positive expiratory wheeze. The patient is positive for BiPAP. ABDOMEN: Soft, nontender, nondistended. Obese. EXTREMITIES: No clubbing, cyanosis, or edema. NEUROLOGICAL: Awake, alert, and oriented x3. Cranial nerves II through XII grossly intact. LABORATORY DATA: Sodium 145, potassium 4.0, chloride 101, bicarbonate 38, BUN 35, creatinine 1.46, glucose 72, GFR 47, calcium 9.2, total protein 7.6, albumin 3.0, globulin 4.6, total bilirubin 0.3, alkaline phosphatase 74, ALT 29, AST 16, BNP 156. WBC 6.4, hemoglobin 10.5, hematocrit 32.6, platelets 202. ABG on FiO2 50%. The patient is on BiPAP with I/E of 14/6, backup rate of 12, pH of 7.339, pCO2 of 69.8, PaO2 of 189.5, bicarbonate of 36.3, O2 saturation 93. Chest x-ray, no acute cardiopulmonary abnormality. ASSESSMENT AND PLAN: 1. Shortness of breath secondary to acute exacerbation of chronic obstructive pulmonary disease versus [id number] hypercapnic respiratory failure. We will continue the patient on BiPAP with a setting of 14/6 with a backup rate of 12, titrate FiO2 for greater O2 saturation of 90%. In addition, we will check an ABG in a.m. 2. Acute exacerbation of chronic obstructive pulmonary disease, probable cause of shortness of breath. Start the patient on Solu-Medrol 20 mg IV b.i.d. with doxycycline 100 mg p.o. daily. 3. Lekjg-jf-nmvcibt hypercapnic respiratory failure, cause of shortness of breath. Continue the patient on BiPAP. Start the patient on 14/6 with a backup rate of 22, titrate FiO2 of greater than 90%. 4. Severe pulmonary hypertension. Currently, the patient is asymptomatic at this time. 5. History of congestive heart failure, diastolic dysfunction. BNP is 156.7. The patient's shortness of breath is more likely secondary to chronic obstructive pulmonary disease versus [id number] hypercapnic respiratory failure. 6. Chronic kidney stage 3. Creatinine is at 1.46. We will try to gently hydrate the patient and check creatinine in a.m. Since the patient is wearing a BiPAP, the patient will have difficult time drinking and at the same time, keep his O2 saturation up. 7. Deep vein thrombosis prophylaxis. We will give the patient heparin. FBShannon/MODElieser Gabe Morales MD History And Physical [address] [address] NAME: MARCIA RAY : 43 STATUS : ADM IN [facility]#: [id number] AGE: 72 ADM/REG DATE : 01/19/17 MR#: [id number] REPORT SERV DATE: 01/20/17 DICTATED BY: GABE MORALES DATE: 01/19/17 REPORT STATUS : Draft TRANSCRIBED BY: CHERIE DATE: 01/19/17 / [id number] CC: Gabe Morales MD
[2017-01-19 15:57] LABS: BASOPHILS 0.2 %; BASOPHILS ABSOLUTE 0.01 10/3/uL (0.0-0.16); EOSINOPHILS ABSOLUTE 0.19 10/3/uL (0.0-0.53); HEMATOCRIT 33.6 % (40.0-51.0); HEMOGLOBIN 10.5 g/dL (13.6-17.8); IMMATURE GRANULOCYTES 0.6 %; IMMATURE GRANULOCYTES ABSOLUTE 0.04 10/3/uL (0.0-0.11); LYMPHOCYTES 28.4 %; LYMPHOCYTES ABSOLUTE 1.83 10/3/uL (0.67-4.30); MEAN CORPUS HGB CONC 31.3 g/dL (32.0-36.0); MEAN CORPUSCULAR HEMOGLOB 31.6 pg (26.0-34.0); MEAN CORPUSCULAR VOLUME 101.2 fL (80-100); MEAN PLATELET VOLUME 10.4 fL (9.2-13.0); MONOCYTES 6.2 %; NEUTROPHILS 61.6 %; NEUTROPHILS ABSOLUTE 3.97 10/3/uL (2.02-8.40); PLATELET COUNT 202 10/3/uL (150-400); RBC DISTRIBUTION WIDTH 14.2 % (12.0-16.0); RED CELL COUNT 3.32 10/6/uL (4.7-6.1)
[2017-01-19 15:58] LABS: MANUAL DIFF NO %; WHITE BLOOD CELLS 6.4 10/3/uL (4.5-10.5)
[~2017-01-19 16:07] MED LIST changes: +BUM5 PO; +CARTIA XT120 MG/24 PO; +CORTEF5 PO; +NORCO1 TA1 PO; +SENTAB PO; +VITAMIN D1000 UNI1 PO
[2017-01-19 16:13] LABS: PROTIME (NOT ORD) 13.3 SEC (12.0-14.5)
[2017-01-19 16:14] LABS: ALKALINE PHOSPHATASE 74 U/L (45-117); CALCIUM, SERUM 9.2 MG/DL (8.5-10.4); CHLORIDE, SERUM 101 MMOL/L (96-112); CO2 (CARBON DIOXIDE) 38 MMOL/L (24-34); CREATININE 1.46 MG/DL (0.70-1.30); GFR AFRICAN AMERICAN 55 ML/MIN (>=60); GFR NON AFRICAN AMERICAN 47 ML/MIN (>=60); SGOT(AST) 16 U/L (5-40); SGPT(ALT) 29 U/L (5-65); SODIUM, SERUM 145 MMOL/L (135-148); TOTAL BILIRUBIN 0.3 MG/DL (0-1.2)
[2017-01-19 16:15] LABS: A/G RATIO 0.7 (0.7-1.9); BUN (BLOOD UREA NITROGEN) 25 MG/DL (6-23); GLOBULIN 4.6 G/DL (2.5-4.1); GLUCOSE, SERUM 72 MG/DL (60-99); TOTAL PROTEIN 7.6 G/DL (6.0-8.5)
[2017-01-19 16:17] LABS: TROPONIN I 0.06 NG/ML (<0.05)
[2017-01-19 16:33] LABS: BE (BASE EXCESS) 8.9 MEQ/L (0 +/- 2.5); CARBOXYHEMOGLOBIN 0.9 % (0-3); HCO3 (ACTUAL BICARBONATE) 36.7 MEQ/L (23-27); HEMOBLOGIN CONTENT 10.7 G/DL (14-18); INSTRUMENT SERIAL # 8087; METHEMOGLOBIN 0.3 % (0-3); O2 CONTENT 15.2 VOL% (18-24); OPERATOR ID 14904~00; PCO2 (CO2 TENSION) 70 MMHG (35-45); PO2 (O2 TENSION) 190 MMHG (79-93); SAMPLE Arterial; pH 7.34 (7.37-7.43)
[2017-01-19 16:34] LABS: ALLENS TEST Pos; BIPAP 14/6 cm.H2O
[2017-01-19 22:49] LABS: INFLUENZA A SCREEN NEGATIVE (NEGATIVE); INFLUENZA B SCREEN NEGATIVE (NEGATIVE)
[2017-01-20 06:25] LABS: A/G RATIO 0.7 (0.7-1.9); ALBUMIN 2.9 G/DL (3.5-5.0); ALKALINE PHOSPHATASE 68 U/L (45-117); CALCIUM, SERUM 9.2 MG/DL (8.5-10.4); CHLORIDE, SERUM 99 MMOL/L (96-112); CO2 (CARBON DIOXIDE) 37 MMOL/L (24-34); CREATININE 1.46 MG/DL (0.70-1.30); GFR AFRICAN AMERICAN 55 ML/MIN (>=60); GFR NON AFRICAN AMERICAN 47 ML/MIN (>=60); GLOBULIN 4.4 G/DL (2.5-4.1); PHOSPHORUS, SERUM 4.3 MG/DL (2.5-4.5); POTASSIUM, SERUM 4.3 MMOL/L (3.5-5.3); SGOT(AST) 15 U/L (5-40); SGPT(ALT) 26 U/L (5-65); SODIUM, SERUM 143 MMOL/L (135-148); TOTAL BILIRUBIN 0.5 MG/DL (0-1.2); TOTAL PROTEIN 7.3 G/DL (6.0-8.5)
[2017-01-20 06:26] LABS: BUN (BLOOD UREA NITROGEN) 32 MG/DL (6-23); GLUCOSE, SERUM 193 MG/DL (60-99)
[2017-01-21 06:57] LABS: BASOPHILS 0 %; EOSINOPHILS 0 %; HEMATOCRIT 33.9 % (40.0-51.0); HEMOGLOBIN 10.5 g/dL (13.6-17.8); IMMATURE GRANULOCYTES 0.4 %; IMMATURE GRANULOCYTES ABSOLUTE 0.03 10/3/uL (0.0-0.11); LYMPHOCYTES 18.7 %; LYMPHOCYTES ABSOLUTE 1.56 10/3/uL (0.67-4.30); MEAN CORPUSCULAR HEMOGLOB 31.3 pg (26.0-34.0); MEAN CORPUSCULAR VOLUME 100.9 fL (80-100); MEAN PLATELET VOLUME 10.2 fL (9.2-13.0); MONOCYTES 8.7 %; MONOCYTES ABSOLUTE 0.73 10/3/uL (0.21-1.20); NEUTROPHILS 72.2 %; NEUTROPHILS ABSOLUTE 6.03 10/3/uL (2.02-8.40); RBC DISTRIBUTION WIDTH 13.7 % (12.0-16.0); RED CELL COUNT 3.36 10/6/uL (4.7-6.1); WHITE BLOOD CELLS 8.4 10/3/uL (4.5-10.5)
[2017-01-21 07:05] LABS: MANUAL DIFF NO %; PLATELET COUNT 293 10/3/uL (150-400)
[2017-01-21 07:10] LABS: A/G RATIO 0.7 (0.7-1.9); ALKALINE PHOSPHATASE 71 U/L (45-117); CALCIUM, SERUM 9.2 MG/DL (8.5-10.4); CHLORIDE, SERUM 96 MMOL/L (96-112); CO2 (CARBON DIOXIDE) 39 MMOL/L (24-34); CREATININE 1.57 MG/DL (0.70-1.30); GFR AFRICAN AMERICAN 50 ML/MIN (>=60); GFR NON AFRICAN AMERICAN 43 ML/MIN (>=60); GLOBULIN 4.6 G/DL (2.5-4.1); GLUCOSE, SERUM 207 MG/DL (60-99); POTASSIUM, SERUM 4.4 MMOL/L (3.5-5.3); SGOT(AST) 16 U/L (5-40); SGPT(ALT) 25 U/L (5-65); SODIUM, SERUM 142 MMOL/L (135-148); TOTAL BILIRUBIN 0.3 MG/DL (0-1.2); TOTAL PROTEIN 7.6 G/DL (6.0-8.5)
[2017-01-21 07:12] LABS: BUN (BLOOD UREA NITROGEN) 41 MG/DL (6-23); PHOSPHORUS, SERUM 2.9 MG/DL (2.5-4.5)
[2017-01-22 07:15] LABS: ALBUMIN 2.9 G/DL (3.5-5.0); CALCIUM, SERUM 8.6 MG/DL (8.5-10.4); CHLORIDE, SERUM 95 MMOL/L (96-112); CREATININE 1.88 MG/DL (0.70-1.30); GFR AFRICAN AMERICAN 40 ML/MIN (>=60); GFR NON AFRICAN AMERICAN 35 ML/MIN (>=60); POTASSIUM, SERUM 4.1 MMOL/L (3.5-5.3); SODIUM, SERUM 143 MMOL/L (135-148)
[2017-01-22 07:16] LABS: BUN (BLOOD UREA NITROGEN) 47 MG/DL (6-23); CO2 (CARBON DIOXIDE) 41 MMOL/L (24-34); GLUCOSE, SERUM 107 MG/DL (60-99)
== END 2017-01-22 20:11 | disposition home or self-care (01) | DRG 189 ==
LOC: ER 16:07 → IMCU 20:20 → 2SO 01-20 13:30
PROVIDERS: Emergency Medicine; Hospitalist
PROC: 5A09457 Assistance with Respiratory Ventilation, 24-96 Consecutive Hours, Continuous Positive Airway Pressure (ICD-10-PCS; principal; 2017-01-19)
DX: J96.21 Acute and chronic respiratory failure with hypoxia (principal); I13.0 Hypertensive heart and chronic kidney disease with heart failure and stage 1 through stage 4 chronic kidney disease, or unspecified chronic kidney disease; I50.32 Chronic diastolic (congestive) heart failure; I27.2 Other secondary pulmonary hypertension; J44.1 Chronic obstructive pulmonary disease with (acute) exacerbation; E11.9 Type 2 diabetes mellitus without complications; E78.5 Hyperlipidemia, unspecified; N18.3 Chronic kidney disease, stage 3 (moderate); I27.81 Cor pulmonale (chronic); Z79.899 Other long term (current) drug therapy; Z79.82 Long term (current) use of aspirin; Z79.4 Long term (current) use of insulin; Z88.8 Allergy status to other drugs, medicaments and biological substances; Z88.0 Allergy status to penicillin; Z88.5 Allergy status to narcotic agent
CPT/HCPCS: 36600; 71010; 80053; 80069; 82330; 82803; 82805; 82947; 82962; 83605; 83735; 83880; 84100; 84132; 84295; 84484; 85014; 85025; 85610; 87040; 87641; 87804; 93005; 94640; 94660; 96374; 99291; A9270-GY; J2930

== ENCOUNTER 2017-01-31 18:17 | Inpatient (IN) | payer MEDICARE, BC ==
--- NOTE | ~2017-01-31 | HP ---
History And Physical [id number] [place]. [address] NAME: MARCIA RAY : 43 STATUS : ADM IN PAT#: [id number] AGE: 72 ADM/REG DATE : 01/31/17 MR#: [id number] REPORT SERV DATE: 02/01/17 DICTATED BY: MARZENA SYLVESTER DATE: 01/31/17 REPORT STATUS : Draft TRANSCRIBED BY: MODL DATE: 01/31/17 DATE OF ADMISSION: 01/31/2017 CHIEF COMPLAINT: A 72-year-old male presenting with increasing shortness of breath. HISTORY OF PRESENTING ILLNESS: The patient's history was obtained through careful interview with the patient and nephew, Nabeel, coupled with review of [facility] medical records. The patient has been deteriorating over the last several months in terms of his respiratory status. He wears nasal cannula oxygen all day long, but with any kind of exertion, the family has noticed that his O2 saturations seem to drop into the 70s. He has extreme dyspnea on exertion now that is quite debilitating apparently. He has also developed mostly nonproductive cough, it is only occasionally productive of a scant yellow sputum. On the night of admission he had become debilitated by shortness of breath and felt that he was dying and so asked to come to the hospital for further evaluation. He has been confused, lethargic, and incoherent at times particularly over the last several days. He has occasional nausea, but no vomiting. No abdominal pain. No abdominal distention. No lower extremity edema. No fevers or chills. He describes rotator cuff discomfort, but he is unable to give a precise quality or severity of that pain and it seems to be located on both sides. No actual chest pain. No back pain. No headache. He claims his diabetes is usually under good control with blood sugars less than 200. REVIEW OF SYSTEMS: Otherwise a 14-point review of systems was obtained and was negative. PAST MEDICAL HISTORY: 1. COPD, on nasal cannula oxygen, followed by Dr. Car. 2. Diastolic congestive heart failure, seen by Dr. Pollack. 3. Diabetes. Hemoglobin A1c of 9.1, 12/2016. 4. Obstructive sleep apnea, on chronic Trilogy mask. 5. Chronic kidney disease stage 3. Baseline creatinine of 1.5 to 1.9. 6. Hypothyroidism. 7. Peptic ulcer disease. 8. Nephrolithiasis. 9. Hypotestosteronism. 10.Adrenal insufficiency. 11.Severe pulmonary hypertension, on macitentan as well as Revatio. History And Physical [address] [place]. [address] NAME: MARCIA RAY : 43 STATUS : ADM IN PAT#: [id number] AGE: 72 ADM/REG DATE : 01/31/17 MR#: [id number] REPORT SERV DATE: 02/01/17 DICTATED BY: MARZENA SYLVESTER DATE: 01/31/17 REPORT STATUS : Draft TRANSCRIBED BY: CHERIE DATE: 01/31/17 12.Pulseless electrical activity with cardiac arrest in 2014. 13.Glaucoma. PAST SURGICAL HISTORY: 1. Cholecystectomy. 2. Bilateral rotator cuff repair. ALLERGIES: TO LUIS INHIBITOR, PENICILLIN, ARB, MORPHINE, OXYCODONE. CODE STATUS: Do not intubate. SOCIAL HISTORY: Quit smoking more than 30 years ago. Occasional alcohol use. Lives alone. Retired from the [employer]. Has one son, but is not communicating with him anymore. A sister and nephew are close and check on him virtually every day. FAMILY HISTORY: Heart disease. CURRENT MEDICATIONS: Include albuterol inhaler, aspirin 81 mg p.o. daily, Lipitor 40 mg p.o. daily, Symbicort two puffs inhaled twice a day, Bumex 0.5 mg p.o. b.i.d., Coreg 12.5 mg p.o. b.i.d., vitamin D, diltiazem extended release 120 mg p.o. daily, eye drops, hydrocodone, NovoLog 10 units before meals, Lantus 20 units subcutaneous at bedtime, Synthroid 75 mcg p.o. daily, macitentan 10 mg p.o. daily, Revatio 20 mg p.o. t.i.d., Antivert p.r.n., Spiriva inhaled daily, Maxzide 37.5/25 half tablet daily. PHYSICAL EXAMINATION: VITAL SIGNS: Temperature 99.4, pulse 88, blood pressure 118/60, respiratory rate 17, O2 saturation 100% on nonrebreather. GENERAL: An ill and even toxic-appearing male, in evidence of distress secondary to shortness of breath. HEENT: Pupils equal, round, and reactive to light. No conjunctival pallor. No scleral icterus. Nares are patent. Oropharynx is clear of obstruction. Moist mucous membranes. NECK: Trachea midline. No thyromegaly. LYMPH: No cervical lymphadenopathy. No supraclavicular lymphadenopathy. RESPIRATORY: The patient has very distant breath sounds and very "tight" exam with poor air movement. There are scattered slight wheezes, but no rhonchi. No focal egophony. No rales. The patient has a quite labored respiratory effort. CARDIOVASCULAR: Regular rate and rhythm. No murmurs, rubs, or gallops. No current extremity edema is appreciated. ABDOMEN: Soft, nontender, nondistended. Normal bowel sounds auscultated throughout. No hepatosplenomegaly. DERMATOLOGICAL: Warm and dry extremities. No pallor, no cyanosis. PSYCHIATRIC: A flat affect, but claims to be in good mood. He is quite lethargic and somewhat incoherent, but is easily aroused and is oriented to location and recent history, but has difficulty with orientation to precise details of time. LABORATORY DATA: Brain natriuretic peptide 64. Troponin 0.03. INR 1.1. Lactic acid 1.0. White blood cell count 12.6, hemoglobin 10, hematocrit 33, MCV 101.2, platelets 274. Sodium History And Physical [address] [address] NAME: MARCIA RAY : 43 STATUS : ADM IN [facility]#: [id number] AGE: 72 ADM/REG DATE : 01/31/17 MR#: [id number] REPORT SERV DATE: 02/01/17 DICTATED BY: MARZENA SYLVESTER DATE: 01/31/17 REPORT STATUS : Draft TRANSCRIBED BY: MODL DATE: 01/31/17 143, potassium 4.0, chloride 99, bicarb 38, BUN 27, creatinine 0.74, glucose 167. ABG demonstrates a pH of 7.32, a PaCO2 of 74, a PaO2 of 158, and a bicarb of 37 on 50% FiO2. STUDIES: 1. Chest x-ray by my own evaluation shows possible patchy right lower lung pneumonia. No other acute abnormality known. 2. EKG by my own evaluation shows sinus rhythm, right axis deviation. ASSESSMENT AND PLAN: 1. Hypoxic and hypercapnic respiratory failure. Admit to the IMCU on BiPAP. Follow ABG. 2. Chronic obstructive pulmonary disease exacerbation. Place on IV Solu-Medrol, duo nebulizers. Consult Dr. Car, batch unloader. 3. Possible pneumonia. Check blood cultures. Place on IV antibiotics. Check procalcitonin. 4. Severe pulmonary hypertension with diastolic congestive heart failure. He is euvolemic by exam. We will monitor volume status closely. 5. Obstructive sleep apnea, on chronic Trilogy mask. 6. Chronic kidney disease, stage 3. 7. Diabetes. Hemoglobin A1c of 9.1, 12/2016. Place on sliding scale insulin. Continue home insulin. KPL/MODL Marzena Sylvester M.D. / [id number] CC: Vidhya Marsh M.D. Pamela Sud, M.D.
--- NOTE | ~2017-01-31 | DS ---
Discharge Summary [facility] [address] [place]. [address] NAME: MARCIA RAY : 43 STATUS : ADM IN [facility]#: [id number] AGE: 72 ADM/REG DATE : 01/31/17 MR#: [id number] REPORT SERV DATE: 02/08/17 DICTATED BY: DATE: REPORT STATUS : Draft TRANSCRIBED BY: MODL DATE: 02/07/17 ADMISSION DATE: 01/31/2017 DISCHARGE DATE: 02/08/2017 The patient is admitted to the [facility]. CONSULTANTS: 1. Cher Car M.D. of Pulmonary Medicine. 2. [facility]. DISCHARGE DIAGNOSES: 1. Acute on chronic hypercapnic hypoxemic respiratory failure. 2. Acute exacerbation of chronic obstructive pulmonary disease. 3. Possible left lower lobe community-acquired pneumonia. 4. History of oxygen dependent chronic obstructive pulmonary disease-4 to 6 L. 5. Severe pulmonary hypertension and cor pulmonale-utilizing nocturnal BiPAP at home. 6. Acute exacerbation of cor pulmonale-status post diuresis. 7. Chronic kidney disease, stage 2 to 3-creatinine at baseline this admission. 8. Insulin-dependent diabetes mellitus type 2-reasonably controlled this admission, occasional hyperglycemia with steroids for chronic obstructive pulmonary disease. 9. History of PEA. 10.Diastolic dysfunction. 11.Hyperlipidemia. 12.Hypothyroidism. 13.Documented history of adrenal insufficiency-not currently on steroid replacement. 14.Hypotension-improved with decrease in home carvedilol dose. IMAGIN. Portable chest x-ray, 01/31 for shortness of breath shows borderline to mild cardiomegaly. Acute mild congestive failure changes. 2. Portable chest x-ray, 02/01 shows mild central venous congestion and developing left basilar atelectasis. 3. Portable chest x-ray, 02/02 shows mild vascular congestion. 4. PA lateral chest x-ray, 02/07 shows mild medial left basilar alveolar opacity suspected on frontal projection but does not clearly bear out on lateral view. Mild cardiomegaly without pulmonary edema. PERTINENT LABS: Initial white blood cell count 12.6, hemoglobin 10.9, platelets 245. Initial creatinine 1.74-ranging from 1.5-1.7 through the admission. Procalcitonin x2 negative. Lactic acid level negative. Troponin x2 negative. BNP normal. Blood gas, pH 7.32, pCO2 of 74, PO2 of 60, oxygen saturations 91% on FiO2 30%. Blood cultures x2 negative. Sputum could not be obtained this admission. TSH and free T4 were normal. BRIEF HISTORY: For full details please see the previously dictated history of present illness by Gregor Sims. Briefly, this is a 72-year-old, male with known oxygen-dependent COPD, severe pulmonary hypertension, and cor pulmonale-on nocturnal BiPAP Discharge Summary [address] [address] NAME: MARCIA RAY : 43 STATUS : ADM IN PAT#: [id number] AGE: 72 ADM/REG DATE : 01/31/17 MR#: [id number] REPORT SERV DATE: 02/08/17 DICTATED BY: DATE: REPORT STATUS : Draft TRANSCRIBED BY: MODElieser DATE: 02/07/17 and outpatient medications including Opsumit and Revatio. Despite this, he recently has been having decline in his functioning, and frequent admissions for shortness of breath and weakness. He also endorsed a cough productive of scant amount of sputum in the emergency department, and he was admitted to the Hospitalist Service for further management. HOSPITAL COURSE: The patient was initially admitted to the [facility] for continuous BiPAP therapy. He improved over the course of the next 24 hours and was able to take breaks off BiPAP to eat. He was treated with antibiotics including Rocephin and azithromycin as well as IV steroids, nebulizer treatments, and EzPAP. He was able to be transferred out of the [facility] on 02/02, to use his home BiPAP machine at bedtime and p.r.n. Pulmonary followed the patient this admission and talked to him extensively about the progression of his pulmonary disease despite optimal medical management. The patient was able to determine that he would not want to be intubated during the admission and those advanced directives were specified. He also was able to determine that he would be willing to talk with hospice. After hearing about hospice services, he was undecided whether he would elect for home with hospice versus halfway facility for some additional physical rehabilitation. He was referred to several facilities over the weekend, but has been declined at [facility] and [facility]. Currently, a referral to [facility] is pending. As of yesterday, patient has completed 7 days of antibiotic therapy for acute exacerbation of COPD. His IV steroids have been steadily weaned and he is currently on prednisone 30 mg a day, with additional outpatient titration plans. He required several days of IV Bumex but now is taking his home diuretics without recurrence of pulmonary edema and his creatinine is at baseline. As his steroids have been tapered, steroid-induced hyperglycemia has resolved. The patient has not had any other active issues during the hospitalization. DISPOSITION: The patient will be discharged to home with Hospice or to [facility] after he discuss further with his family and is able to make a decision. The patient and family state they should have a decision in place by tomorrow at 0900 hours. Case management is aware. He should adhere to an 1800-calorie ADA diet at the time of discharge, and his discharge activity level will be determined by his selection of either rehab or home with hospice. If he elects to go to rehab he will need to follow up with his primary care provider within 7-14 days from rehab discharge and with his compressor assembler within 2-3 weeks from discharge from rehab. He will need to use oxygen between 4-6 L nasal cannula during the day and continue to use his home trilogy BiPAP at night and during daytime naps. DISCHARGE MEDICATIONS: 1. Aspirin 81 mg p.o. daily. Discharge Summary [address] [address] NAME: MARCIA RAY : 43 STATUS : ADM IN [facility]#: [id number] AGE: 72 ADM/REG DATE : 01/31/17 MR#: [id number] REPORT SERV DATE: 02/08/17 DICTATED BY: DATE: REPORT STATUS : Draft TRANSCRIBED BY: MODL DATE: 02/07/17 2. Lipitor 40 mg p.o. q.a.m. 3. Bumex 0.5 mg p.o. after breakfast and lunch. 4. Triamterene/HCTZ 37.5/25, 0.5 tabs p.o. q.a.m. 5. Vitamin D 1000 units p.o. q.a.m. 6. Carvedilol 6.25 mg p.o. twice a day. 7. Cardia XT 120 mg p.o. q.a.m. 8. NovoLog 10 units subcu q.a.c. t.i.d. 9. Lantus 20 units subcu at bedtime. 10.Latanoprost eyedrops one drop in each eye at bedtime. 11.Synthroid 75 mcg p.o. q.a.m. 12.Opsumit 10 mg p.o. daily. 13.Revatio 20 mg p.o. three times a day. 14.Albuterol 1 neb inhaled 3 times a day. 15.Symbicort 160/4.5 two puffs inhaled twice a day. 16.Colace 100 mg p.o. twice a day as needed for constipation. 17.Hydrocodone/acetaminophen 5/325 mg one tablet p.o. four times a day as needed for pain. 18.Antivert 25 mg p.o. twice a day as needed for vertigo. 19.MiraLax one packet p.o. daily as needed for constipation. 20.Albuterol MDI two puffs inhaled twice a day as needed. 21.Trusopt 1 drop in each eye twice a day. 22.Spiriva one cap inhaled q.a.m. 23.Prednisone 20 mg p.o. daily for 3 days, then 10 mg p.o. daily for 3 days, then 5 mg p.o. daily until seen by Pulmonology in followup. Thirty five minutes was spent in completion of this discharge summary. JAROD/CHERIE Rufus Bonilla M.D. / [id number] CC: Vidhya Royal M.D. Pamela Sud, M.D.
--- NOTE | ~2017-01-31 | DS ---
Discharge Summary [facility] [address] [place]. [address] NAME: MARCIA RAY : 43 STATUS : DIS IN PAT#: [id number] AGE: 72 ADM/REG DATE : 01/31/17 MR#: [id number] REPORT SERV DATE: 02/09/17 DICTATED BY: MAURISIO MCGARRY DATE: 02/08/17 REPORT STATUS : Draft TRANSCRIBED BY: MODL DATE: 02/08/17 ADMISSION DATE: 01/31/2017 DISCHARGE DATE: 02/08/2017 ADDENDUM: Please refer to discharge summary from Dr. Rufus Bonilla for further details. The medication changes at discharge; please note,the patient is to take Lantus 35 units subcutaneous at bedtime. The patient is to continue with level 2 subcutaneous sliding scale insulin. The patient has decided on discharging to [facility] at discharge and also an order for Pulmonary to continue to follow the patient in consultation has been ordered as well as daily weights. Please refer to discharge summary from Dr. Rufus Bonilla for further details. Also please note, the patient is to continue with his home trilogy while at [facility]. [facility]/CHERIE Maurisio Mcgarry M.D. / [id number] CC: Vidhya Lilly M.D. William Warren, M.D.
[2017-01-31 18:39] LABS: ALLENS TEST Pos; BE (BASE EXCESS) 2.9 MEQ/L (0 +/- 2.5); BIPAP 16/6 cm.H2O; CARBOXYHEMOGLOBIN 1.2 % (0-3); HCO3 (ACTUAL BICARBONATE) 29.6 MEQ/L (23-27); INSTRUMENT SERIAL # 8087; METHEMOGLOBIN 0.2 % (0-3); O2 CONTENT 15.4 VOL% (18-24); OPERATOR ID 13715; PCO2 (CO2 TENSION) 57 MMHG (35-45); PO2 (O2 TENSION) 157 MMHG (79-93); SAMPLE Arterial; pH 7.34 (7.37-7.43)
[2017-01-31] MEDS ORDERED: ALBUTEROL0.083 % INH (19:16)
[2017-01-31] MEDS ORDERED: PROAIR HFA INH (19:16)
[2017-01-31] MEDS ORDERED: LIPITOR40 PO (19:18)
[2017-01-31] MEDS ORDERED: SYMBICORT 160/41 INH INH (19:18)
[2017-01-31] MEDS ORDERED: ASAB PO (19:18)
[2017-01-31] MEDS ORDERED: BUM5 PO (19:19)
[2017-01-31] MEDS ORDERED: COREG12 PO (19:20)
[2017-01-31] MEDS ORDERED: VITAMIN D1000 UNI1 PO (19:20)
[2017-01-31] MEDS ORDERED: TRUSOPT2 % OPH (19:21)
[2017-01-31] MEDS ORDERED: CARTIA XT120 MG/24 PO (19:21)
[2017-01-31] MEDS ORDERED: NORCO1 TA1 PO (19:25)
[2017-01-31] MEDS ORDERED: NOVOLOG SC (19:25)
[2017-01-31] MEDS ORDERED: LANTUS SC (19:26)
[2017-01-31] MEDS ORDERED: XALAT OPH (19:26)
[2017-01-31] MEDS ORDERED: SYN075 PO (19:26)
[2017-01-31] MEDS ORDERED: MAX25 PO (19:27)
[2017-01-31] MEDS ORDERED: SPIRIVA INH (19:27)
[2017-01-31] MEDS ORDERED: MCZ25 PO (19:27)
[2017-01-31] MEDS ORDERED: OPSUMIT10 PO (19:31)
[2017-01-31] MEDS ORDERED: REVATIO20 PO (19:41)
[2017-01-31 19:48] LABS: BASOPHILS 0.2 %; BASOPHILS ABSOLUTE 0.03 10/3/uL (0.0-0.16); EOSINOPHILS 0.3 %; EOSINOPHILS ABSOLUTE 0.04 10/3/uL (0.0-0.53); ER CBC TAT 0 Hrs 11 Mins; HEMOGLOBIN 10.2 g/dL (13.6-17.8); IMMATURE GRANULOCYTES 0.8 %; LYMPHOCYTES 13.8 %; LYMPHOCYTES ABSOLUTE 1.74 10/3/uL (0.67-4.30); MANUAL DIFF NO %; MEAN CORPUS HGB CONC 30.9 g/dL (32.0-36.0); MEAN CORPUSCULAR HEMOGLOB 31.3 pg (26.0-34.0); MEAN CORPUSCULAR VOLUME 101.2 fL (80-100); MEAN PLATELET VOLUME 9.3 fL (9.2-13.0); MONOCYTES 4.7 %; MONOCYTES ABSOLUTE 0.59 10/3/uL (0.21-1.20); NEUTROPHILS 80.2 %; NEUTROPHILS ABSOLUTE 10.08 10/3/uL (2.02-8.40); PLATELET COUNT 274 10/3/uL (150-400); RBC DISTRIBUTION WIDTH 14.5 % (12.0-16.0); RED CELL COUNT 3.26 10/6/uL (4.7-6.1); WHITE BLOOD CELLS 12.6 10/3/uL (4.5-10.5)
[2017-01-31 20:02] LABS: INTERNATIONAL NORMAL RATI 1.1 UNITS (-); PARTIAL THROMBO TIME 26.4 SEC (22.5-37.2); PROTIME (NOT ORD) 13.9 SEC (12.0-14.5)
[2017-01-31 20:05] LABS: CALCIUM, SERUM 8.7 MG/DL (8.5-10.4); CHEST PAIN PROFILE TAT 0 Hrs 28 Mins; CHLORIDE, SERUM 99 MMOL/L (96-112); CO2 (CARBON DIOXIDE) 38 MMOL/L (24-34); CREATININE 1.74 MG/DL (0.70-1.30); GFR AFRICAN AMERICAN 44 ML/MIN (>=60); GFR NON AFRICAN AMERICAN 38 ML/MIN (>=60); SODIUM, SERUM 143 MMOL/L (135-148); TROPONIN I 0.03 NG/ML (<0.05)
[2017-01-31 20:06] LABS: BUN (BLOOD UREA NITROGEN) 27 MG/DL (6-23); GLUCOSE, SERUM 167 MG/DL (60-99)
[2017-01-31 20:21] LABS: BE (BASE EXCESS) 8.8 MEQ/L (0 +/- 2.5); BIPAP 16/6 cm.H2O; CARBOXYHEMOGLOBIN 1.3 % (0-3); HCO3 (ACTUAL BICARBONATE) 37.2 MEQ/L (23-27); HEMOBLOGIN CONTENT 11.2 G/DL (14-18); INSTRUMENT SERIAL # 8087; METHEMOGLOBIN 0.2 % (0-3); O2 CONTENT 15.7 VOL% (18-24); PCO2 (CO2 TENSION) 74 MMHG (35-45); PO2 (O2 TENSION) 158 MMHG (79-93); SAMPLE Arterial; pH 7.32 (7.37-7.43)
[2017-01-31 21:07] LABS: PROCALCITONIN 0.12 ng/mL (<0.5)
[2017-02-01 00:32] LABS: ALLENS TEST Pos; BE (BASE EXCESS) 7.7 MEQ/L (0 +/- 2.5); BIPAP 18/6 cm.H2O; CARBOXYHEMOGLOBIN 0.7 % (0-3); HCO3 (ACTUAL BICARBONATE) 35.6 MEQ/L (23-27); HEMOBLOGIN CONTENT 10.9 G/DL (14-18); INSTRUMENT SERIAL # 8083; METHEMOGLOBIN 0.2 % (0-3); O2 CONTENT 14.5 VOL% (18-24); OPERATOR ID 13415; PCO2 (CO2 TENSION) 70 MMHG (35-45); PO2 (O2 TENSION) 80 MMHG (79-93); SAMPLE Arterial; pH 7.33 (7.37-7.43)
[2017-02-01 04:40] LABS: BASOPHILS 0.1 %; BASOPHILS ABSOLUTE 0.01 10/3/uL (0.0-0.16); EOSINOPHILS 0 %; HEMATOCRIT 35.3 % (40.0-51.0); HEMOGLOBIN 10.9 g/dL (13.6-17.8); IMMATURE GRANULOCYTES 1.1 %; IMMATURE GRANULOCYTES ABSOLUTE 0.13 10/3/uL (0.0-0.11); LYMPHOCYTES 11.3 %; LYMPHOCYTES ABSOLUTE 1.36 10/3/uL (0.67-4.30); MEAN CORPUS HGB CONC 30.9 g/dL (32.0-36.0); MEAN CORPUSCULAR HEMOGLOB 31.2 pg (26.0-34.0); MEAN CORPUSCULAR VOLUME 101.1 fL (80-100); MONOCYTES 0.7 %; MONOCYTES ABSOLUTE 0.09 10/3/uL (0.21-1.20); NEUTROPHILS 86.8 %; NEUTROPHILS ABSOLUTE 10.47 10/3/uL (2.02-8.40); PLATELET COUNT 245 10/3/uL (150-400); RBC DISTRIBUTION WIDTH 14.3 % (12.0-16.0); RED CELL COUNT 3.49 10/6/uL (4.7-6.1); WHITE BLOOD CELLS 12.1 10/3/uL (4.5-10.5)
[2017-02-01 04:42] LABS: MANUAL DIFF NO %
[2017-02-01 04:45] LABS: INTERNATIONAL NORMAL RATI 1.1 UNITS (-)
[2017-02-01 04:54] LABS: PARTIAL THROMBO TIME 21.4 SEC (22.5-37.2)
[2017-02-01 05:05] LABS: ALLENS TEST Pos; BE (BASE EXCESS) 9.6 MEQ/L (0 +/- 2.5); BIPAP 18/6 cm.H2O; CARBOXYHEMOGLOBIN 0.4 % (0-3); HCO3 (ACTUAL BICARBONATE) 36.4 MEQ/L (23-27); HEMOBLOGIN CONTENT 10.5 G/DL (14-18); INSTRUMENT SERIAL # 8083; METHEMOGLOBIN 0.2 % (0-3); O2 CONTENT 13.3 VOL% (18-24); OPERATOR ID 13415; PCO2 (CO2 TENSION) 63 MMHG (35-45); PO2 (O2 TENSION) 60 MMHG (79-93); SAMPLE Arterial; pH 7.38 (7.37-7.43)
[2017-02-01 05:12] LABS: A/G RATIO 0.7 (0.7-1.9); ALBUMIN 3.1 G/DL (3.5-5.0); BUN (BLOOD UREA NITROGEN) 29 MG/DL (6-23); CALCIUM, SERUM 8.8 MG/DL (8.5-10.4); CHLORIDE, SERUM 100 MMOL/L (96-112); CREATININE 1.55 MG/DL (0.70-1.30); GFR AFRICAN AMERICAN 51 ML/MIN (>=60); GFR NON AFRICAN AMERICAN 44 ML/MIN (>=60); GLOBULIN 4.5 G/DL (2.5-4.1); POTASSIUM, SERUM 4.2 MMOL/L (3.5-5.3); SGOT(AST) 18 U/L (5-40); SGPT(ALT) 35 U/L (5-65); SODIUM, SERUM 141 MMOL/L (135-148); TOTAL BILIRUBIN 0.3 MG/DL (0-1.2); TOTAL PROTEIN 7.6 G/DL (6.0-8.5); TROPONIN I 0.02 NG/ML (<0.05)
[2017-02-01 05:21] LABS: ALKALINE PHOSPHATASE 89 U/L (45-117); CO2 (CARBON DIOXIDE) 29 MMOL/L (24-34); GLUCOSE, SERUM 204 MG/DL (60-99); ULTRASENSITIVE TSH 0.103 MCIU/ML (0.358-3.740)
[2017-02-01 06:52] LABS: PROCALCITONIN 0.07 ng/mL (<0.5)
[2017-02-02 05:30] LABS: BASOPHILS 0.1 %; BASOPHILS ABSOLUTE 0.01 10/3/uL (0.0-0.16); EOSINOPHILS 0 %; HEMOGLOBIN 9.5 g/dL (13.6-17.8); IMMATURE GRANULOCYTES 1.3 %; IMMATURE GRANULOCYTES ABSOLUTE 0.22 10/3/uL (0.0-0.11); LYMPHOCYTES 7.8 %; LYMPHOCYTES ABSOLUTE 1.32 10/3/uL (0.67-4.30); MEAN CORPUSCULAR HEMOGLOB 31.4 pg (26.0-34.0); MEAN PLATELET VOLUME 10.2 fL (9.2-13.0); MONOCYTES 7.6 %; MONOCYTES ABSOLUTE 1.28 10/3/uL (0.21-1.20); NEUTROPHILS 83.2 %; NEUTROPHILS ABSOLUTE 14.02 10/3/uL (2.02-8.40); PLATELET COUNT 265 10/3/uL (150-400); RBC DISTRIBUTION WIDTH 14.4 % (12.0-16.0); RED CELL COUNT 3.03 10/6/uL (4.7-6.1); WHITE BLOOD CELLS 16.9 10/3/uL (4.5-10.5)
[2017-02-02 05:31] LABS: HEMATOCRIT 30.6 % (40.0-51.0); MANUAL DIFF NO %
[2017-02-02 05:50] LABS: CALCIUM, SERUM 8.9 MG/DL (8.5-10.4); CHLORIDE, SERUM 100 MMOL/L (96-112); CO2 (CARBON DIOXIDE) 33 MMOL/L (24-34); CREATININE 1.74 MG/DL (0.70-1.30); GFR AFRICAN AMERICAN 44 ML/MIN (>=60); GFR NON AFRICAN AMERICAN 38 ML/MIN (>=60); SODIUM, SERUM 141 MMOL/L (135-148)
[2017-02-02 05:53] LABS: BUN (BLOOD UREA NITROGEN) 41 MG/DL (6-23); GLUCOSE, SERUM 277 MG/DL (60-99)
[2017-02-03 05:51] LABS: CALCIUM, SERUM 8.9 MG/DL (8.5-10.4); CHLORIDE, SERUM 101 MMOL/L (96-112); CO2 (CARBON DIOXIDE) 33 MMOL/L (24-34); CREATININE 1.67 MG/DL (0.70-1.30); GFR AFRICAN AMERICAN 46 ML/MIN (>=60); GFR NON AFRICAN AMERICAN 40 ML/MIN (>=60); GLUCOSE, SERUM 286 MG/DL (60-99); POTASSIUM, SERUM 4.2 MMOL/L (3.5-5.3); SODIUM, SERUM 141 MMOL/L (135-148)
[2017-02-03 05:55] LABS: BUN (BLOOD UREA NITROGEN) 49 MG/DL (6-23); ULTRASENSITIVE TSH 0.397 MCIU/ML (0.358-3.740)
[2017-02-05 07:03] LABS: HEMATOCRIT 32.1 % (40.0-51.0); HEMOGLOBIN 10.4 g/dL (13.6-17.8); MEAN CORPUS HGB CONC 32.4 g/dL (32.0-36.0); MEAN CORPUSCULAR HEMOGLOB 31.6 pg (26.0-34.0); MEAN PLATELET VOLUME 10.1 fL (9.2-13.0); PLATELET COUNT 221 10/3/uL (150-400); RBC DISTRIBUTION WIDTH 14.4 % (12.0-16.0); RED CELL COUNT 3.29 10/6/uL (4.7-6.1); WHITE BLOOD CELLS 14.8 10/3/uL (4.5-10.5)
[2017-02-05 07:06] LABS: MANUAL DIFF YES %; MEAN CORPUSCULAR VOLUME 97.6 fL (80-100)
[2017-02-05 07:16] LABS: BUN (BLOOD UREA NITROGEN) 49 MG/DL (6-23); CALCIUM, SERUM 9.1 MG/DL (8.5-10.4); CHLORIDE, SERUM 98 MMOL/L (96-112); CO2 (CARBON DIOXIDE) 37 MMOL/L (24-34); CREATININE 1.61 MG/DL (0.70-1.30); GFR AFRICAN AMERICAN 48 ML/MIN (>=60); GFR NON AFRICAN AMERICAN 42 ML/MIN (>=60); GLUCOSE, SERUM 253 MG/DL (60-99); SODIUM, SERUM 140 MMOL/L (135-148)
[2017-02-05 07:55] LABS: BAND NEUTROPHILS 1 %; HELMET CELLS OCC (0-2/OIF); LYMPHOCYTES 4 %; LYMPHOCYTES ABSOLUTE (CALC) 0.59 10/3/uL (0.67-4.30); MONOCYTES 16 %; MONOCYTES ABSOLUTE (CALC) 2.37 10/3/uL (0.21-1.20); NEUTROPHILS ABSOLUTE (CALC) 11.84 10/3/uL (2.02-8.40); PLATELET ESTIMATE ADQ (ADEQUATE); POIKILOCYTOSIS 1+ (5-10/OIF) (0-5/OIF); SEGMENTED NEUTROPHIL (0) 79 %; TOTAL NUCLEATED CELLS 100
[2017-02-08 12:11] LABS: POTASSIUM, SERUM 4.3 MMOL/L (3.5-5.3)
== END 2017-02-08 16:48 | DRG 189 ==
LOC: ER 18:17 → IMCU 21:26 → 5SO 02-02 13:53
PROVIDERS: Hospitalist; Internal Medicine
DX: J96.21 Acute and chronic respiratory failure with hypoxia (principal); J18.9 Pneumonia, unspecified organism; I50.31 Acute diastolic (congestive) heart failure; I11.0 Hypertensive heart disease with heart failure; E11.22 Type 2 diabetes mellitus with diabetic chronic kidney disease; I27.2 Other secondary pulmonary hypertension; Z99.81 Dependence on supplemental oxygen; J98.11 Atelectasis; J44.0 Chronic obstructive pulmonary disease with (acute) lower respiratory infection; J96.22 Acute and chronic respiratory failure with hypercapnia; N18.3 Chronic kidney disease, stage 3 (moderate); E03.9 Hypothyroidism, unspecified; Z87.11 Personal history of peptic ulcer disease; Z87.442 Personal history of urinary calculi; Z90.49 Acquired absence of other specified parts of digestive tract; Z98.890 Other specified postprocedural states; Z88.8 Allergy status to other drugs, medicaments and biological substances; Z88.0 Allergy status to penicillin; Z88.5 Allergy status to narcotic agent; Z87.891 Personal history of nicotine dependence; Z82.49 Family history of ischemic heart disease and other diseases of the circulatory system; Z79.82 Long term (current) use of aspirin; Z79.899 Other long term (current) drug therapy; Z79.4 Long term (current) use of insulin; I27.81 Cor pulmonale (chronic); K59.00 Constipation, unspecified
CPT/HCPCS: 36600; 71010; 71020; 80048; 80053; 82330; 82803; 82805; 82947; 82962; 83605; 83735; 83880; 84132; 84145; 84295; 84439; 84443; 84484; 85014; 85025; 85610; 85730; 87040; 87449; 87641; 93005; 94640; 94660; 94668; 96374; 96375; 97161-GP; 97164-GP; 99285; A9270-GY; G8978-CJ-GP; G8979-CJ-GP; G8980-CJ-GP; J0456; J2920; J2930

== ENCOUNTER 2017-03-24 04:40 | Inpatient (IN) | payer MEDICARE, BC ==
--- NOTE | ~2017-03-24 | CN ---
Consultation Report [facility] [address] [place]. [address] NAME: MARCIA PHAN : 43 STATUS : ADM IN [facility]#: [id number] AGE: 72 ADM/REG DATE : 03/24/17 MR#: [id number] REPORT SERV DATE: 03/24/17 DICTATED BY: ELEANOR ESPINOSA DATE: 03/24/17 REPORT STATUS : Draft TRANSCRIBED BY: MODL DATE: 03/24/17 PULMONARY CONSULT NOTE DATE OF CONSULTATION: REASON FOR CONSULTATION: Acute hypercapnic respiratory failure. CHIEF COMPLAINT: Shortness of breath. HISTORY OF PRESENT ILLNESS: Mr. Phan is a 72-year-old gentleman who is well known to our service for underlying end-stage COPD, pulmonary hypertension, chronic hypoxia, and cor pulmonale in the setting of chronic kidney disease and chronic diastolic dysfunction. The patient is currently in the ER with his son at the bedside, he is attempting to answer questions, but has conversational dyspnea. The patient is complaining of shortness of breath and could not breathe today and presented to the ER. He is currently on BiPAP therapy. Otherwise, son notes it is the typical symptoms of his COPD. No significant sputum production and so forth. Otherwise, no further complaints. PAST MEDICAL HISTORY: End-stage COPD, chronic hypoxic and hypercapnic respiratory failure, cor pulmonale, severe pulmonary hypertension, chronic kidney disease, diabetes, and chronic diastolic dysfunction. HOME MEDICATIONS: Home medication list reviewed. ALLERGIES: PENICILLIN, ARBS, OXYCODONE, AND MORPHINE. SOCIAL HISTORY: The patient has a very supportive family, has a history of smoking. No alcohol or illicit drug use. FAMILY HISTORY: Other family members with underlying heart disease. REVIEW OF SYSTEMS: Attempted review of systems; however, due to the patient's breathlessness, unable to complete a full review of systems. PHYSICAL EXAMINATION: GENERAL: The patient is alert, conversational dyspnea. LUNGS: Distant breath sounds bilaterally. No crackles. CARDIAC: Regular rate. No murmurs. ABDOMEN: Abdomen is soft, nontender, and nondistended. EXTREMITIES: 1+ lower extremity edema bilaterally. No cyanosis. Extremities are lukewarm. NEUROLOGIC: No focal neurological deficits. LABORATORY EXAMINATION: White blood cell count 13.3 and hemoglobin 9.7. Bicarb 41 and Consultation Report [facility] [address] [place]. [address] NAME: MARCIA PHAN : 43 STATUS : ADM IN PAT#: [id number] AGE: 72 ADM/REG DATE : 03/24/17 MR#: [id number] REPORT SERV DATE: 03/24/17 DICTATED BY: ELEANOR ESPINOSA DATE: 03/24/17 REPORT STATUS : Draft TRANSCRIBED BY: MODL DATE: 03/24/17 creatinine 1.55 with a BUN of 39. BNP 130 with a troponin of 0.04. Arterial blood gas shows an improving pCO2 on BiPAP therapy. IMAGING DATA: Chest x-ray shows cardiomegaly with pulmonary vascular engorgement. No pneumonia. ASSESSMENT AND PLAN: Mr. Phan is a 72-year-old gentleman with a past medical history of the multiple pulmonary medical problems noted above. 1. Acute hypercapnic respiratory failure in the setting of severe chronic obstructive pulmonary disease: I agree with BiPAP therapy, continue Bumex, Dulera, Solu-Medrol with Spiriva. Potentially, will most likely be able to come off the BiPAP here in the next 6 to 12 hours. 2. Cor pulmonale with pulmonary hypertension: The patient is to continue his Opsumit and Revatio. BNP is in acceptable range, Bumex therapy. 3. Chronic hypoxia: Continue oxygen supplementation. 4. Goals of care: The patient is a DO NOT RESUSCITATE and DO NOT INTUBATE, this was reaffirmed with the patient's son and the patient at the bedside. Thank you much for this consultation, we will continue to follow along with you, please call with any further questions or concerns. HFQ/MODL Eleanor Espinosa MD / [id number] CC: Elias Martin M.D.
--- NOTE | ~2017-03-24 | HP ---
History And Physical [place] [address] [facility] [place]. [address] NAME: MARCIA RAY : 43 STATUS : ADM IN [facility]#: [id number] AGE: 72 ADM/REG DATE : 03/24/17 MR#: [id number] REPORT SERV DATE: 03/24/17 DICTATED BY: MARZENA SYLVESTER DATE: 03/24/17 REPORT STATUS : Draft TRANSCRIBED BY: MODL DATE: 03/24/17 DATE OF ADMISSION: 03/24/2017 CHIEF COMPLAINT: A 72-year-old male presenting with shortness of breath. HISTORY OF PRESENT ILLNESS: The patient's history was obtained through an interview with the patient and sister coupled with review of [facility] medical records. The patient was last hospitalized for COPD in January 2017 and had to be transferred to [facility]. He was there up until two weeks ago when he was able to be discharged to home and had improved in his his breathing. Then, over the last week, the patient has had increasing shortness of breath characterized by dyspnea on exertion, a prominent wheeze. He has become increasingly debilitated with difficulty ambulating and caring for himself. He has developed the cough productive of yellowish sputum and chest discomfort at the base of his lungs, an aching quality, 8/10 severity, exacerbated by coughing. He has noticed some increased lower extremity edema, but he denies worsening chronic orthopnea. No fevers or chills. No nausea or vomiting. No diarrhea. He states his diabetes is "okay." REVIEW OF SYSTEMS: Otherwise, a 14-point review of systems was obtained and was negative. PAST MEDICAL HISTORY: 1. COPD, on chronic nasal cannula oxygen, seen by Dr. Cher Car. 2. Diastolic congestive heart failure, seen by Dr. Pollack. 3. Obstructive sleep apnea, on a Trilogy mask. 4. Pulmonary hypertension, severe, on Revatio. 5. Chronic kidney disease stage 3. Baseline creatinine of 1.5 to 1.9. 6. Diabetes. Hemoglobin A1c of 9.1 in December 2016. 7. Hypothyroidism. 8. Peptic ulcer disease. 9. Nephrolithiasis. 10.Hypotestosteronism. 11.Adrenal insufficiency. 12.Pulseless electrical activity with cardiac arrest in 2014. 13.Glaucoma. 14.Pneumonia in January 2017. PAST SURGICAL HISTORY: 1. Cholecystectomy. History And Physical [address] [place]. [address] NAME: MARCIA RAY : [birth year] STATUS : ADM IN [facility]#: [id number] AGE: 72 ADM/REG DATE : 03/24/17 MR#: [id number] REPORT SERV DATE: 03/24/17 DICTATED BY: MARZENA SYLVESTER DATE: 03/24/17 REPORT STATUS : Draft TRANSCRIBED BY: CHERIE DATE: 03/24/17 2. Bilateral rotator cuff repair. ALLERGIES: TO PENICILLIN, LUIS INHIBITOR, ARB, MORPHINE, OXYCODONE. SOCIAL HISTORY: He quit smoking more than 30 years ago. He drinks occasional alcohol. Lives alone. Retired from the [employer]. He has one son, but is not in communication with him. He has a sister and nephew who live nearby and check on him daily. CODE STATUS: Do not intubate, but apparently, the patient is okay to have CPR. FAMILY HISTORY: Coronary artery disease. CURRENT MEDICATIONS: Although I know the patient is on Revatio, diabetes medications, inhalers, otherwise medication list is unknown to me, but has been requested by Pharmacy. PHYSICAL EXAMINATION: VITAL SIGNS: Temperature 98.2, pulse 75, blood pressure 113/38, respiratory rate 23, O2 saturation 99% on 15 L nasal cannula. GENERAL: A very ill-appearing male, in distress secondary to breathing difficulty. HEENT: Pupils equal, round, and reactive to light. No conjunctival pallor. No scleral icterus. Nares are patent. Oropharynx is clear of obstruction. Moist mucous membranes. NECK: Trachea midline. No thyromegaly. LYMPH: No cervical lymphadenopathy. No supraclavicular lymphadenopathy. RESPIRATORY: The patient has inspiratory and expiratory wheezes that are quite harsh with respiratory rhonchi as well. No rales. He has an extremely labored respiratory effort heaving with his abdomen and shoulders to assist with each breath. CARDIOVASCULAR: Regular rate and rhythm. No murmurs, rubs, or gallops. The patient does have pitting lower extremity edema extending to the knees symmetrically. ABDOMEN: Soft, nontender, nondistended. No hepatosplenomegaly is appreciated. DERMATOLOGICAL: Warm and dry extremities. No pallor. No cyanosis. PSYCHIATRIC: Normal affect. Good mood. Alert. Poorly oriented to details of time, but is oriented to location and recent history. LABORATORY DATA: ABG demonstrates a pH of 7.30, a PaCO2 of 78, a PaO2 of 73, and a bicarb of 31. White blood cell count 11.3, hemoglobin 9.7, hematocrit 31.4, MCV 104, platelets 205. Sodium 145, potassium 4.2, chloride 100, bicarb 41, BUN 39, creatinine 1.55, glucose 210. Brain natriuretic peptide 130. Troponin 0.04. Lactic acid 0.7. INR 1.1. STUDIES: 1. Chest x-ray by my own evaluation shows cardiomegaly, atelectasis. 2. EKG by my own evaluation shows sinus rhythm, no major abnormalities otherwise. ASSESSMENT AND PLAN: 1. Hypercapnic respiratory failure. Place on BiPAP. 2. Chronic obstructive pulmonary disease exacerbation. Place on IV Solu-Medrol, DuoNeb nebulizers, doxycycline. Check procalcitonin. History And Physical [address] [address] NAME: MARCIA RAY : 43 STATUS : ADM IN [facility]#: [id number] AGE: 72 ADM/REG DATE : 03/24/17 MR#: [id number] REPORT SERV DATE: 03/24/17 DICTATED BY: MARZENA SYLVESTER DATE: 03/24/17 REPORT STATUS : Draft TRANSCRIBED BY: MODL DATE: 03/24/17 3. Obstructive sleep apnea, home Trilogy mask. 4. Diabetes. Check hemoglobin A1c. Continue sliding scale insulin and home insulin. 5. Chronic kidney disease stage 3. 6. Macrocytosis. Check studies. 7. Severe pulmonary hypertension, on Revatio. KPL/MODL Marzena Sylvester M.D. / [id number] CC: Vidhya Harvey M.D.
--- NOTE | ~2017-03-24 | DS ---
Discharge Summary [facility] [address] [place]. [address] NAME: MARCIA RAY : 43 STATUS : ADM IN [facility]#: [id number] AGE: 72 ADM/REG DATE : 03/24/17 MR#: [id number] REPORT SERV DATE: 04/02/17 DICTATED BY: BELLA DEMPSEY DATE: 04/02/17 REPORT STATUS : Draft TRANSCRIBED BY: MODL DATE: 04/02/17 ADMISSION DATE: 03/24/2017 DISCHARGE DATE: CURRENT HOSPITAL DIAGNOSES: 1. Chronic obstructive pulmonary disease. 2. Diastolic congestive heart failure. 3. Obstructive sleep apnea. 4. Pulmonary hypertension. 5. Chronic kidney disease. 6. Diabetes. 7. Hypothyroidism. CONSULTATIONS: Pulmonary. PROCEDURES: None. CURRENT PHYSICAL FINDINGS AND HPI: Please see initial dictated H and P by Dr. Sims. In brief, the patient is a 72-year-old male with above medical history with multiple previous hospitalization for similar complaints, presented on the with increasing shortness of breath. Vital signs at initial admission, BP was 113/38, but rapidly normalized and remained stable. He has had no significant fever during his hospital stay. His O2 requirements have been 4-5 L on average after his first hospital day. Labs initial BMP showed a creatinine of 1.55, which is approximately his baseline and his renal function has been stable through his hospital stay. Blood sugars were relatively stable on the equivalent of his home medications. BNP was 130. Initial white count was 11.3, but normalized during his hospital stay. Mild chronic anemia approximately 9-10 on his hemoglobin. Blood cultures done on the date of admission are negative at four days. HOSPITAL COURSE: The patient was initially admitted per his previous wishes. His limited DNR was filled out. He was admitted to [facility] initially, Pulmonary was consulted. He was requiring high-flow O2 at that time. He is placed on sliding scale. His home medications reviewed and ordered appropriately. He was placed on BiPAP, Solu-Medrol, DuoNebs, and p.o. doxycycline as well as electrolyte protocol. Dr. Martin initially followed him on the first hospital day, he was switched over to oral prednisone. His insulin was adjusted appropriately. Serial chest x-rays were followed. He was then followed by Dr. Bagley. Serial lab work were followed. Monitoring his diuretics with diuresis. Pulmonary continued to follow. His p.o. doxycycline was discontinued on the . On the , he required some treatment for constipation, but otherwise was doing well. He did require on the some p.r.n. additional coverage for his hyperglycemia his steroids were further decreased. Case Management was asked to consult on discharge recommendations on the . I assumed his care on the , he underwent PT assessment, no needs were identified. Pulmonary continued to follow, but had felt he had reached maximal hospital benefit and signed off several days later with a three- to four-week followup requested. I had numerous discussions with the patient as did case management concerned for his chronic progression of his underlying disease, but patient declined any needs at home and declined repeated Discharge Summary [address] [address] NAME: MARCIA RAY : 43 STATUS : ADM IN [facility]#: [id number] AGE: 72 ADM/REG DATE : 03/24/17 MR#: [id number] REPORT SERV DATE: 04/02/17 DICTATED BY: BELLA DEMPSEY DATE: 04/02/17 REPORT STATUS : Draft TRANSCRIBED BY: CHERIE DATE: 04/02/17 admission for rehab. He was therefore discharged to home as it was felt he had reached maximal hospital benefit. DISCHARGE MEDICATIONS: Aspirin 81, Lipitor 40, Bumex 1 mg b.i.d., Maxzide 37.5/25 half tablet daily, Coreg 25 b.i.d., vitamin D 1000, Cartia XT 120, Lantus 20 at bedtime, NovoLog 10 with meals, Xalatan eye drops, levothyroxine 75, Opsumit 10 daily, Viagra 25 t.i.d., Spiriva, prednisone 5, Proventil inhaler and nebulizers, Symbicort 160/4.5 two puffs b.i.d., Trusopt ophthalmic, Antivert 25 p.r.n., Tylenol p.r.n. Dr. Car's office will call him for followup. He should do a post hospital followup with his PCP in two weeks. DICTATED BY: Vidhya Foster/CHERIE Bella Dempsey M.D. / [id number] CC: Bella Dempsey M.D.
[2017-03-24 02:58] LABS: ALLENS TEST Pos; BE (BASE EXCESS) 10.6 MEQ/L (0 +/- 2.5); BIPAP 17/5 cm.H2O; CARBOXYHEMOGLOBIN 1.1 % (0-3); HEMOBLOGIN CONTENT 10.3 G/DL (14-18); INSTRUMENT SERIAL # 8087; METHEMOGLOBIN 0.4 % (0-3); O2 CONTENT 13.2 VOL% (18-24); OPERATOR ID 17589; PCO2 (CO2 TENSION) 78 MMHG (35-45); PO2 (O2 TENSION) 73 MMHG (79-93); SAMPLE Arterial; pH 7.32 (7.37-7.43)
[2017-03-24 03:15] LABS: BASOPHILS 0.2 %; BASOPHILS ABSOLUTE 0.02 10/3/uL (0.0-0.16); EOSINOPHILS 1.1 %; EOSINOPHILS ABSOLUTE 0.13 10/3/uL (0.0-0.53); ER CBC TAT 0 Hrs 05 Mins; HEMATOCRIT 31.4 % (40.0-51.0); HEMOGLOBIN 9.7 g/dL (13.6-17.8); IMMATURE GRANULOCYTES 0.4 %; IMMATURE GRANULOCYTES ABSOLUTE 0.04 10/3/uL (0.0-0.11); LYMPHOCYTES 18.7 %; LYMPHOCYTES ABSOLUTE 2.12 10/3/uL (0.67-4.30); MEAN CORPUS HGB CONC 30.9 g/dL (32.0-36.0); MEAN CORPUSCULAR HEMOGLOB 32.1 pg (26.0-34.0); MEAN PLATELET VOLUME 10.1 fL (9.2-13.0); MONOCYTES ABSOLUTE 1.02 10/3/uL (0.21-1.20); NEUTROPHILS 70.6 %; NEUTROPHILS ABSOLUTE 7.99 10/3/uL (2.02-8.40); PLATELET COUNT 205 10/3/uL (150-400); RBC DISTRIBUTION WIDTH 14.8 % (12.0-16.0); RED CELL COUNT 3.02 10/6/uL (4.7-6.1); WHITE BLOOD CELLS 11.3 10/3/uL (4.5-10.5)
[2017-03-24 03:16] LABS: MANUAL DIFF NO %
[2017-03-24 03:25] LABS: INTERNATIONAL NORMAL RATI 1.1 UNITS (-); PARTIAL THROMBO TIME 28.1 SEC (22.5-37.2); PROTIME (NOT ORD) 13.8 SEC (12.0-14.5)
[2017-03-24 03:32] LABS: CALCIUM, SERUM 8.9 MG/DL (8.5-10.4); CHEST PAIN PROFILE TAT 0 Hrs 22 Mins; CHLORIDE, SERUM 100 MMOL/L (96-112); CREATININE 1.55 MG/DL (0.70-1.30); GFR AFRICAN AMERICAN 51 ML/MIN (>=60); GFR NON AFRICAN AMERICAN 44 ML/MIN (>=60); GLUCOSE, SERUM 210 MG/DL (60-99); POTASSIUM, SERUM 4.2 MMOL/L (3.5-5.3); SODIUM, SERUM 145 MMOL/L (135-148); TROPONIN I 0.04 NG/ML (<0.05)
[2017-03-24 03:33] LABS: BUN (BLOOD UREA NITROGEN) 39 MG/DL (6-23); CO2 (CARBON DIOXIDE) 41 MMOL/L (24-34)
[2017-03-24 03:36] LABS: LACTATE 0.7 MMOL/L (0.3-2.4)
[~2017-03-24 04:40] MED LIST changes: +OPSUMIT10 PO
[2017-03-24 05:24] LABS: ALLENS TEST Pos; BE (BASE EXCESS) 9.5 MEQ/L (0 +/- 2.5); BIPAP 17/5 cm.H2O; CARBOXYHEMOGLOBIN 1.4 % (0-3); HCO3 (ACTUAL BICARBONATE) 37.7 MEQ/L (23-27); HEMOBLOGIN CONTENT 10.6 G/DL (14-18); INSTRUMENT SERIAL # 8087; METHEMOGLOBIN 0.3 % (0-3); O2 CONTENT 13.1 VOL% (18-24); OPERATOR ID 17589; PCO2 (CO2 TENSION) 74 MMHG (35-45); PO2 (O2 TENSION) 65 MMHG (79-93); SAMPLE Arterial; pH 7.32 (7.37-7.43)
[2017-03-24] MEDS ORDERED: VIAGRA25 PO (07:39)
[2017-03-24] MEDS ORDERED: ALBUTEROL5 INH (07:39)
[2017-03-24] MEDS ORDERED: COREG25 PO (07:40)
[2017-03-24] MEDS ORDERED: LIPITOR40 PO (07:40)
[2017-03-24] MEDS ORDERED: HALF81 PO (07:40)
[2017-03-24] MEDS ORDERED: BUM1 PO (07:40)
[2017-03-24] MEDS ORDERED: CARTIA XT120 MG/24 PO (07:41)
[2017-03-24] MEDS ORDERED: LANTUS SC (07:44)
[2017-03-24] MEDS ORDERED: TRUSOPT2 % OPH (07:44)
[2017-03-24] MEDS ORDERED: XALAT OPH (07:45)
[2017-03-24] MEDS ORDERED: MCZ25 PO (07:45)
[2017-03-24] MEDS ORDERED: LEVOTHYROXIN75 MCG PO (07:45)
[2017-03-24] MEDS ORDERED: OPSUMIT10 PO (07:46)
[2017-03-24] MEDS ORDERED: NOVOLOG SC (07:46)
[2017-03-24] MEDS ORDERED: P5 PO (07:46)
[2017-03-24] MEDS ORDERED: ALBUTEROL5 PO (07:46)
[2017-03-24] MEDS ORDERED: SPIRIVA INH (07:47)
[2017-03-24] MEDS ORDERED: VITAMIN D1000 UNI1 PO (07:47)
[2017-03-24] MEDS ORDERED: MAX25 PO (07:47)
[2017-03-24] MEDS ORDERED: SYMBICORT 160/41 INH INH (07:47)
[2017-03-24] MEDS ORDERED: T PO (07:48)
[2017-03-24 08:53] LABS: ALLENS TEST Pos; BE (BASE EXCESS) 5.3 MEQ/L (0 +/- 2.5); BIPAP 17/5 cm.H2O; CARBOXYHEMOGLOBIN 1.1 % (0-3); HCO3 (ACTUAL BICARBONATE) 33.2 MEQ/L (23-27); HEMOBLOGIN CONTENT 10.5 G/DL (14-18); INSTRUMENT SERIAL # 8087; METHEMOGLOBIN 0.3 % (0-3); O2 CONTENT 13.9 VOL% (18-24); PCO2 (CO2 TENSION) 69 MMHG (35-45); PO2 (O2 TENSION) 88 MMHG (79-93); SAMPLE Arterial
[2017-03-24 15:47] LABS: BASOPHILS 0 %; EOSINOPHILS 0 %; HEMATOCRIT 30.9 % (40.0-51.0); HEMOGLOBIN 9.2 g/dL (13.6-17.8); IMMATURE GRANULOCYTES 0.4 %; IMMATURE GRANULOCYTES ABSOLUTE 0.04 10/3/uL (0.0-0.11); LYMPHOCYTES 7.7 %; MEAN CORPUS HGB CONC 29.8 g/dL (32.0-36.0); MEAN CORPUSCULAR HEMOGLOB 30.9 pg (26.0-34.0); MEAN CORPUSCULAR VOLUME 103.7 fL (80-100); MEAN PLATELET VOLUME 10.4 fL (9.2-13.0); MONOCYTES 1.3 %; MONOCYTES ABSOLUTE 0.12 10/3/uL (0.21-1.20); NEUTROPHILS 90.6 %; NEUTROPHILS ABSOLUTE 8.23 10/3/uL (2.02-8.40); PLATELET COUNT 192 10/3/uL (150-400); RBC DISTRIBUTION WIDTH 14.8 % (12.0-16.0); RED CELL COUNT 2.98 10/6/uL (4.7-6.1); WHITE BLOOD CELLS 9.1 10/3/uL (4.5-10.5)
[2017-03-24 15:50] LABS: MANUAL DIFF NO %
[2017-03-24 15:55] LABS: INTERNATIONAL NORMAL RATI 1.2 UNITS (-); PARTIAL THROMBO TIME 25.8 SEC (22.5-37.2); PROTIME (NOT ORD) 14.6 SEC (12.0-14.5)
[2017-03-24 16:13] LABS: A/G RATIO 0.8 (0.7-1.9); ALBUMIN 3.1 G/DL (3.5-5.0); ALKALINE PHOSPHATASE 81 U/L (45-117); BUN (BLOOD UREA NITROGEN) 36 MG/DL (6-23); CALCIUM, SERUM 8.8 MG/DL (8.5-10.4); CHLORIDE, SERUM 100 MMOL/L (96-112); CO2 (CARBON DIOXIDE) 40 MMOL/L (24-34); CREATININE 1.71 MG/DL (0.70-1.30); FOLATE 15.3 NG/ML (>5.2); GFR AFRICAN AMERICAN 45 ML/MIN (>=60); GFR NON AFRICAN AMERICAN 39 ML/MIN (>=60); GLOBULIN 3.9 G/DL (2.5-4.1); GLUCOSE, SERUM 300 MG/DL (60-99); POTASSIUM, SERUM 4.4 MMOL/L (3.5-5.3); SGOT(AST) 17 U/L (5-40); SGPT(ALT) 29 U/L (5-65); SODIUM, SERUM 140 MMOL/L (135-148); TOTAL BILIRUBIN 0.2 MG/DL (0-1.2)
[2017-03-24 16:15] LABS: TROPONIN I 0.05 NG/ML (<0.05); ULTRASENSITIVE TSH 0.147 MCIU/ML (0.358-3.740)
[2017-03-24 16:44] LABS: PROCALCITONIN 0.07 ng/mL (<0.5)
[2017-03-26 05:26] LABS: BUN (BLOOD UREA NITROGEN) 76 MG/DL (6-23); CALCIUM, SERUM 9.3 MG/DL (8.5-10.4); CHLORIDE, SERUM 98 MMOL/L (96-112); CO2 (CARBON DIOXIDE) 34 MMOL/L (24-34); CREATININE 2.07 MG/DL (0.70-1.30); GFR AFRICAN AMERICAN 36 ML/MIN (>=60); GFR NON AFRICAN AMERICAN 31 ML/MIN (>=60); GLUCOSE, SERUM 162 MG/DL (60-99); POTASSIUM, SERUM 4.7 MMOL/L (3.5-5.3); SODIUM, SERUM 137 MMOL/L (135-148)
[2017-03-26 05:48] LABS: HEMATOCRIT 32.6 % (40.0-51.0); HEMOGLOBIN 9.9 g/dL (13.6-17.8); MEAN CORPUS HGB CONC 30.4 g/dL (32.0-36.0); MEAN CORPUSCULAR HEMOGLOB 30.7 pg (26.0-34.0); MEAN CORPUSCULAR VOLUME 101.2 fL (80-100); MEAN PLATELET VOLUME 10.5 fL (9.2-13.0); PLATELET COUNT 204 10/3/uL (150-400); RBC DISTRIBUTION WIDTH 14.9 % (12.0-16.0); RED CELL COUNT 3.22 10/6/uL (4.7-6.1)
[2017-03-26 05:53] LABS: MANUAL DIFF YES %
[2017-03-26 06:52] LABS: IMMATURE GRANS ABSOLUTE (CALC) 0.14 10/3/uL (0.0-0.11); LYMPHOCYTES 6 %; LYMPHOCYTES ABSOLUTE (CALC) 0.84 10/3/uL (0.67-4.30); METAMYELOCYTES 1 %; MONOCYTES 7 %; MONOCYTES ABSOLUTE (CALC) 0.98 10/3/uL (0.21-1.20); NEUTROPHILS ABSOLUTE (CALC) 12.04 10/3/uL (2.02-8.40); PLATELET ESTIMATE ADQ (ADEQUATE); RBC MORPHOLOGY NORM (NORMAL); SEGMENTED NEUTROPHIL (0) 86 %; TOTAL NUCLEATED CELLS 100
[2017-03-27 06:08] LABS: BASOPHILS 0 %; EOSINOPHILS 0 %; HEMATOCRIT 29.4 % (40.0-51.0); IMMATURE GRANULOCYTES 0.5 %; IMMATURE GRANULOCYTES ABSOLUTE 0.05 10/3/uL (0.0-0.11); LYMPHOCYTES 10.8 %; LYMPHOCYTES ABSOLUTE 1.08 10/3/uL (0.67-4.30); MANUAL DIFF NO %; MEAN CORPUS HGB CONC 30.6 g/dL (32.0-36.0); MEAN CORPUSCULAR HEMOGLOB 31.3 pg (26.0-34.0); MEAN CORPUSCULAR VOLUME 102.1 fL (80-100); MEAN PLATELET VOLUME 10.6 fL (9.2-13.0); MONOCYTES 11.8 %; MONOCYTES ABSOLUTE 1.18 10/3/uL (0.21-1.20); NEUTROPHILS 76.9 %; NEUTROPHILS ABSOLUTE 7.72 10/3/uL (2.02-8.40); PLATELET COUNT 188 10/3/uL (150-400); RBC DISTRIBUTION WIDTH 14.7 % (12.0-16.0); RED CELL COUNT 2.88 10/6/uL (4.7-6.1)
[2017-03-27 06:19] LABS: CALCIUM, SERUM 8.7 MG/DL (8.5-10.4); CHLORIDE, SERUM 101 MMOL/L (96-112); CO2 (CARBON DIOXIDE) 38 MMOL/L (24-34); CREATININE 1.91 MG/DL (0.70-1.30); GFR AFRICAN AMERICAN 39 ML/MIN (>=60); GFR NON AFRICAN AMERICAN 34 ML/MIN (>=60); PHOSPHORUS, SERUM 3.8 MG/DL (2.5-4.5); POTASSIUM, SERUM 4.6 MMOL/L (3.5-5.3)
[2017-03-27 06:21] LABS: BUN (BLOOD UREA NITROGEN) 85 MG/DL (6-23); GLUCOSE, SERUM 216 MG/DL (60-99); SODIUM, SERUM 144 MMOL/L (135-148)
[2017-03-28 04:36] LABS: BASOPHILS 0 %; EOSINOPHILS 0 %; HEMATOCRIT 30.2 % (40.0-51.0); IMMATURE GRANULOCYTES 0.7 %; IMMATURE GRANULOCYTES ABSOLUTE 0.06 10/3/uL (0.0-0.11); LYMPHOCYTES 13.5 %; LYMPHOCYTES ABSOLUTE 1.15 10/3/uL (0.67-4.30); MEAN CORPUS HGB CONC 29.8 g/dL (32.0-36.0); MEAN CORPUSCULAR HEMOGLOB 30.5 pg (26.0-34.0); MEAN CORPUSCULAR VOLUME 102.4 fL (80-100); MEAN PLATELET VOLUME 10.6 fL (9.2-13.0); MONOCYTES 12.3 %; MONOCYTES ABSOLUTE 1.05 10/3/uL (0.21-1.20); NEUTROPHILS 73.5 %; NEUTROPHILS ABSOLUTE 6.25 10/3/uL (2.02-8.40); PLATELET COUNT 190 10/3/uL (150-400); RBC DISTRIBUTION WIDTH 14.7 % (12.0-16.0); RED CELL COUNT 2.95 10/6/uL (4.7-6.1); WHITE BLOOD CELLS 8.5 10/3/uL (4.5-10.5)
[2017-03-28 04:52] LABS: MANUAL DIFF NO %
[2017-03-28 04:55] LABS: CALCIUM, SERUM 8.9 MG/DL (8.5-10.4); CHLORIDE, SERUM 99 MMOL/L (96-112); CO2 (CARBON DIOXIDE) 37 MMOL/L (24-34); GFR AFRICAN AMERICAN 42 ML/MIN (>=60); GFR NON AFRICAN AMERICAN 37 ML/MIN (>=60); GLUCOSE, SERUM 224 MG/DL (60-99); PHOSPHORUS, SERUM 3.5 MG/DL (2.5-4.5); POTASSIUM, SERUM 4.3 MMOL/L (3.5-5.3); SODIUM, SERUM 142 MMOL/L (135-148)
[2017-03-28 04:56] LABS: BUN (BLOOD UREA NITROGEN) 78 MG/DL (6-23)
[2017-03-29 04:22] LABS: BASOPHILS 0 %; EOSINOPHILS 0.1 %; EOSINOPHILS ABSOLUTE 0.01 10/3/uL (0.0-0.53); HEMOGLOBIN 9.4 g/dL (13.6-17.8); IMMATURE GRANULOCYTES 0.8 %; IMMATURE GRANULOCYTES ABSOLUTE 0.08 10/3/uL (0.0-0.11); LYMPHOCYTES 10.9 %; LYMPHOCYTES ABSOLUTE 1.07 10/3/uL (0.67-4.30); MEAN CORPUS HGB CONC 30.3 g/dL (32.0-36.0); MEAN CORPUSCULAR HEMOGLOB 31.1 pg (26.0-34.0); MEAN CORPUSCULAR VOLUME 102.6 fL (80-100); MEAN PLATELET VOLUME 10.7 fL (9.2-13.0); MONOCYTES 13.7 %; MONOCYTES ABSOLUTE 1.34 10/3/uL (0.21-1.20); NEUTROPHILS 74.5 %; NEUTROPHILS ABSOLUTE 7.29 10/3/uL (2.02-8.40); PLATELET COUNT 199 10/3/uL (150-400); RBC DISTRIBUTION WIDTH 14.6 % (12.0-16.0); RED CELL COUNT 3.02 10/6/uL (4.7-6.1); WHITE BLOOD CELLS 9.8 10/3/uL (4.5-10.5)
[2017-03-29 04:23] LABS: MANUAL DIFF NO %
[2017-03-29 04:32] LABS: CHLORIDE, SERUM 99 MMOL/L (96-112); CO2 (CARBON DIOXIDE) 38 MMOL/L (24-34); CREATININE 1.65 MG/DL (0.70-1.30); GFR AFRICAN AMERICAN 47 ML/MIN (>=60); GFR NON AFRICAN AMERICAN 41 ML/MIN (>=60); PHOSPHORUS, SERUM 3.3 MG/DL (2.5-4.5); SODIUM, SERUM 142 MMOL/L (135-148)
[2017-03-29 04:33] LABS: BUN (BLOOD UREA NITROGEN) 73 MG/DL (6-23); GLUCOSE, SERUM 354 MG/DL (60-99)
[2017-03-30 04:52] LABS: CALCIUM, SERUM 9.2 MG/DL (8.5-10.4); CHLORIDE, SERUM 97 MMOL/L (96-112); CO2 (CARBON DIOXIDE) 40 MMOL/L (24-34); CREATININE 1.57 MG/DL (0.70-1.30); GFR AFRICAN AMERICAN 50 ML/MIN (>=60); GFR NON AFRICAN AMERICAN 43 ML/MIN (>=60); POTASSIUM, SERUM 4.8 MMOL/L (3.5-5.3); SODIUM, SERUM 140 MMOL/L (135-148)
[2017-03-30 04:53] LABS: BUN (BLOOD UREA NITROGEN) 69 MG/DL (6-23); GLUCOSE, SERUM 173 MG/DL (60-99)
[2017-04-01 07:17] LABS: CHLORIDE, SERUM 98 MMOL/L (96-112); CREATININE 1.63 MG/DL (0.70-1.30); GFR AFRICAN AMERICAN 48 ML/MIN (>=60); GFR NON AFRICAN AMERICAN 41 ML/MIN (>=60); POTASSIUM, SERUM 4.8 MMOL/L (3.5-5.3); SODIUM, SERUM 142 MMOL/L (135-148)
[2017-04-01 07:18] LABS: BUN (BLOOD UREA NITROGEN) 52 MG/DL (6-23); CO2 (CARBON DIOXIDE) 42 MMOL/L (24-34); GLUCOSE, SERUM 133 MG/DL (60-99)
== END 2017-04-02 14:54 | disposition home or self-care (01) | DRG 189 ==
LOC: ER 04:40 → ER/OF 06:34 → IMCU 11:15 → 5NO 03-29 23:27
PROVIDERS: Hospitalist; Internal Medicine; Specialist
PROC: 5A09357 Assistance with Respiratory Ventilation, Less than 24 Consecutive Hours, Continuous Positive Airway Pressure (ICD-10-PCS; principal; 2017-03-24)
DX: J96.22 Acute and chronic respiratory failure with hypercapnia (principal); N17.9 Acute kidney failure, unspecified; E11.22 Type 2 diabetes mellitus with diabetic chronic kidney disease; I50.32 Chronic diastolic (congestive) heart failure; I13.0 Hypertensive heart and chronic kidney disease with heart failure and stage 1 through stage 4 chronic kidney disease, or unspecified chronic kidney disease; J44.1 Chronic obstructive pulmonary disease with (acute) exacerbation; I27.2 Other secondary pulmonary hypertension; I27.81 Cor pulmonale (chronic); Z66 Do not resuscitate; E03.9 Hypothyroidism, unspecified; J96.21 Acute and chronic respiratory failure with hypoxia; G47.33 Obstructive sleep apnea (adult) (pediatric); N18.3 Chronic kidney disease, stage 3 (moderate); E66.9 Obesity, unspecified; Z68.33 Body mass index [BMI] 33.0-33.9, adult; H40.9 Unspecified glaucoma; Z86.74 Personal history of sudden cardiac arrest; Z79.84 Long term (current) use of oral hypoglycemic drugs; Z88.0 Allergy status to penicillin
CPT/HCPCS: 36600; 71010; 80048; 80053; 82746; 82805; 82962; 83605; 83735; 83880; 84100; 84145; 84439; 84443; 84484; 85025; 85610; 85730; 87040; 87641; 93005; 94640; 94660; 96374; 96375; 97161-GP; 99291; A9270-GY; G8978-CI-GP; G8979-CI-GP; G8980-CI-GP; J2920